=== PATIENT | female | born 1940 | race Caucasian/White ===

== ENCOUNTER 2020-11-18 19:09 | Inpatient (IN) | payer MEDICARE ==
[~2020-11-18] VITALS: Ht 149.9 cm; Wt 72.6 kg
[2020-11-18] MEDS ORDERED: fentaNYL PF VIAL 100 MCG/2 ML VIAL IVP ONE (19:30)
[2020-11-18 19:55] LABS: BASO % 0 % (0-3); EOS % 0 % (0-3); HEMATOCRIT 30.9 % (36.0-47.0); HEMOGLOBIN 10.1 g/dL (12.0-15.5); LYMPH % 8 % (24-48); MEAN CORPUSCULAR HEMOGLOBIN 31 pg (25-35); MEAN CORPUSCULAR HGB CONC 33 g/dL (31-37); MEAN CORPUSCULAR VOLUME 95 fL (79-100); MONO # 0.9 x10^3/uL (0.0-1.1); MONO % 8 % (0-9); NEUT # 9.4 x10^3/uL (1.8-7.7); NEUT % 83 % (31-73); PLATELET COUNT 158 x10^3/uL (140-400); RED BLOOD COUNT 3.24 x10^6/uL (3.50-5.40); RED CELL DISTRIBUTION WIDTH 14.2 % (11.5-14.5); WHITE BLOOD COUNT 11.4 x10^3/uL (4.0-11.0)
[2020-11-18 20:11] LABS: CALCIUM 8.3 mg/dL (8.5-10.1); CREATININE 0.9 mg/dL (0.6-1.0); GFR 59.9; POTASSIUM 4.2 mmol/L (3.5-5.1)
[2020-11-18 20:17] LABS: ALBUMIN 3.2 g/dL (3.4-5.0); TOTAL BILIRUBIN 0.5 mg/dL (0.2-1.0); TOTAL PROTEIN 6.4 g/dL (6.4-8.2)
--- NOTE | 2020-11-18 20:58 | RAD ---
EXAMINATION: XR CHEST 1V CLINICAL HISTORY: Hip fracture EXAM DATE/TIME: 11/18/2020 7:55 PM COMPARISON: None FINDINGS: Lines, Tubes, and Devices: None. Cardiomediastinal Silhouette: Normal heart size. Aortic atherosclerotic calcification. Lungs and Pleura: No evidence of focal airspace consolidation or pleural effusion. Nonspecific mild d iffuse interstitial prominence, possibly chronic. Bones and Soft Tissues: Degenerative changes of the thoracic spine. IMPRESSION: No evidence of acute cardiopulmonary abnormality. Electronically signed by: Johan Dugan DO (11/18/2020 8:56 PM) [facility]
--- NOTE | 2020-11-18 21:03 | PHYS DOC ---
General Adult EDM: Chief Complaint: HIP PAIN HPI: HPI: 80 yo F PMH afib on ASA, HTN with h/o orthostatic hypertension, presents to the ED with her daughter at bedside (rn neonatal at [facility]), (patient consents to his/her/their knowledge and involvement in pts' medical care), with complaints of right hip pain after patient fell while getting out of her chair at home. Patient is not on any anticoagulants. Patient reports not hitting her head or losing consciousness. She called her brother for help. Patients' spironolactone dosage recently increased. Daughter thinks patient may have had a missed MT but has had an unremarkable stress test in the past at [facility]. Patient reports no associated dizziness, chest pain, or dyspnea. Review of Systems: Review of Systems: Constitutional: Denies fever or chills. [] Eyes: Denies change in visual acuity. [] HENT: Denies nasal congestion or sore throat. [] Respiratory: Denies cough or shortness of breath. [] Cardiovascular: Denies chest pain or edema. [] GI: Denies abdominal pain, nausea, vomiting, bloody stools or diarrhea. [] : Denies saddle anesthesia or incontinence Musculoskeletal: Denies midline back pain or flank pain Integument: Denies rash or diaphoresis Neurologic: Denies headache, neck pain, focal weakness or sensory changes. [] Endocrine: Denies polyuria or polydipsia. [] Lymphatic: Denies swollen glands. [] Psychiatric: Denies depression or anxiety. [] Heart Score: C/O Chest Pain: No Risk Factors: Risk Factors: DM, Current or recent (<one month) smoker, HTN, HLP, family history of CAD, obesity. Risk Scores: Score 0 - 3: 2.5% MACE over next 6 weeks - Discharge Home Score 4 - 6: 20.3% MACE over next 6 weeks - Admit for Clinical Observation Score 7 - 10: 72.7% MACE over next 6 weeks - Early Invasive Strategies Current Medications: Current Medications Medications (Trade) Dose Ordered Sig/Franklin Start Time Stop Time Status Last Admin Dose Admin Fentanyl Citrate (Fentanyl 2ml Vial) 50 mcg 1X ONCE 11/18/20 19:30 11/18/20 20:16 DC 11/18/20 20:03 25 MCG Allergies: Allergies: Allergies Coded Allergies Type Severity Reaction Last Updated Verified Sulfa (Sulfonamide Antibiotics) Allergy Unknown "i just know she is allergic" 11/18/20 Yes erythromycin base Allergy Unknown unknown "i just know she is allergic" 11/18/20 Yes silver sulfadiazine Allergy Unknown severe rash 11/18/20 Yes zinc Allergy Unknown severe rash from silvadene 11/18/20 Yes Physical Exam: PE: Constitutional: Well developed, well nourished, no acute distress, non-toxic appearance, hard of hearing HENT: Normocephalic, atraumatic, no signs of head trauma Eyes: PERRLA, EOMI, conjunctiva normal, no discharge. Neck: Normal range of motion, supple, Cardiovascular: S1/2 present, regular rhythm Lungs & Thorax: Speaking in full sentences, bilateral equal chest rise, no tachypnea or increased work of breathing Abdomen: soft, no tenderness, Skin: Warm, dry, no erythema, no rash. [] Back: No midline spinal step-offs or tenderness, no CVA tenderness. [] Extremities: Externally rotated right lower extremity, DP/PT pulses intact on the right, tenderness over right hip, no pain over right knee or ankle Neurologic: Alert and oriented X 3, normal motor function, normal sensory function, no focal deficits noted. [] Psychologic: Affect normal, judgement normal, mood normal. [] Current Patient Data: Labs: Laboratory Tests Test 11/18/20 19:42 White Blood Count 11.4 x10^3/uL (4.0-11.0) H Red Blood Count 3.24 x10^6/uL (3.50-5.40) L Hemoglobin 10.1 g/dL (12.0-15.5) L Hematocrit 30.9 % (36.0-47.0) L Mean Corpuscular Volume 95 fL (79-100) Mean Corpuscular Hemoglobin 31 pg (25-35) Mean Corpuscular Hemoglobin Concent 33 g/dL (31-37) Red Cell Distribution Width 14.2 % (11.5-14.5) Platelet Count 158 x10^3/uL (140-400) Neutrophils (%) (Auto) 83 % (31-73) H Lymphocytes (%) (Auto) 8 % (24-48) L Monocytes (%) (Auto) 8 % (0-9) Eosinophils (%) (Auto) 0 % (0-3) Basophils (%) (Auto) 0 % (0-3) Neutrophils # (Auto) 9.4 x10^3/uL (1.8-7.7) H Lymphocytes # (Auto) 1.0 x10^3/uL (1.0-4.8) Monocytes # (Auto) 0.9 x10^3/uL (0.0-1.1) Eosinophils # (Auto) 0.0 x10^3/uL (0.0-0.7) Basophils # (Auto) 0.0 x10^3/uL (0.0-0.2) Sodium Level 131 mmol/L (136-145) L Potassium Level 4.2 mmol/L (3.5-5.1) Chloride Level 97 mmol/L (98-107) L Carbon Dioxide Level 28 mmol/L (21-32) Anion Gap 6 (6-14) Blood Urea Nitrogen 16 mg/dL (7-20) Creatinine 0.9 mg/dL (0.6-1.0) Estimated GFR (Cockcroft-Gault) 59.9 BUN/Creatinine Ratio 18 (6-20) Glucose Level 124 mg/dL (70-99) H Calcium Level 8.3 mg/dL (8.5-10.1) L Total Bilirubin 0.5 mg/dL (0.2-1.0) Aspartate Amino Transferase (AST) 59 U/L (15-37) H Alanine Aminotransferase (ALT) 97 U/L (14-59) H Alkaline Phosphatase 112 U/L (46-116) Total Protein 6.4 g/dL (6.4-8.2) Albumin 3.2 g/dL (3.4-5.0) L Albumin/Globulin Ratio 1.0 (1.0-1.7) Laboratory Tests 11/18/20 19:42 Laboratory Tests 11/18/20 19:42 Vital Signs: Vital Signs Date Time Temp Pulse Resp B/P (MAP) Pulse Ox O2 Delivery O2 Flow Rate FiO2 11/18/20 20:03 98 Room Air EKG: EKG: A. fib at 89 bpm, left axis deviation, normal intervals, no T wave inversion, no ST ovation ST depression Radiology/Procedures: Radiology/Procedures: IMAGING REPORT Signed PATIENT: JAXTANG ACCOUNT: [id number] : 1940 LOCATION: ER AGE: 80 SEX: F EXAM STATUS: REG ER ORD. PHYSICIAN: MIKE CADET DO REASON: FALL FROM STANDING, UNSURE IF HIT HEAD PROCEDURE: CT HEAD AND CERVICAL SPINE WO Exam: CT head and cervical spine INDICATION: Fall from standing, ensure that head TECHNIQUE: Sequential axial images through the head and cervical spine were obtained without the administration of IV contrast. Exposure: One or more of the following in the visualized dose reduction techniques were utilized for this examination: 1. Automated exposure control 2. Adjustment of the MA and/or KV according to patient size 3. Use of iterative of reconstructive technique Comparisons: None FINDINGS: Head: No focal parenchymal lesion or hemorrhage is identified. There is no midline shift or sulcal effacement. Patchy evidence in the periventricular white matter. No acute vascular territory infarction is identified. Abraham-white distinction is preserved. The ventricular system is within normal limits without compression hydrocephalus. The basal cisterns are well maintained. The visualized portions of the paranasal sinuses and mastoid air cells are well- pneumatized. No acute fractures. Cervical spine: There is mild reversal of normal cervical lordosis. Vertebral body heights are well-maintained. Fracture to the cervical spine is not identified. Multilevel spondylotic change in the cervical spine with degenerative disc disease greatest at C4-C5, C5-C6 and C6-C7. Mild bilateral facet arthropathy is noted in the cervical spine. Visualized paraspinal soft tissues are unremarkable. IMPRESSION: 1. No acute intracranial abnormality. 2. Negative CT C-spine for acute traumatic injury. Electronically signed by: Levar Lincoln MD (11/18/2020 9:05 PM) [facility] DICTATED and SIGNED BY: LEVAR LINCOLN MD DATE: 11/18/20 [id number] IMAGING REPORT Signed PATIENT: TANG CAMARA ACCOUNT: [id number] : 1940 LOCATION: ER AGE: 80 SEX: F EXAM STATUS: REG ER ORD. PHYSICIAN: IRVIN GONSALEZ DESPATCHING AND RECEIVING CLERK REASON: hip fx PROCEDURE: CHEST AP ONLY EXAMINATION: XR CHEST 1V CLINICAL HISTORY: Hip fracture EXAM DATE/TIME: 11/18/2020 7:55 PM COMPARISON: None FINDINGS: Lines, Tubes, and Devices: None. Cardiomediastinal Silhouette: Normal heart size. Aortic atherosclerotic calcification. Lungs and Pleura: No evidence of focal airspace consolidation or pleural effusion. Nonspecific mild diffuse interstitial prominence, possibly chronic. Bones and Soft Tissues: Degenerative changes of the thoracic spine. IMPRESSION: No evidence of acute cardiopulmonary abnormality. Electronically signed by: Johan Dozier DO (11/18/2020 8:56 PM) [facility] DICTATED and SIGNED BY: JOHAN DOZIER DO DATE: 11/18/[id number] 0 IMAGING REPORT Signed PATIENT: TANG CAMARA ACCOUNT: [id number] : 1940 LOCATION: ER AGE: 80 SEX: F EXAM STATUS: REG ER ORD. PHYSICIAN: MIKE CADET DO REASON: RT HIP INJURY, FALL PROCEDURE: HIP RIGHT 2V WITH PELVIS Exam: Right hip INDICATION: Right hip injury, fall TECHNIQUE: Frontal view of the pelvis with frontal and frog-leg lateral views the right hip Comparisons: None FINDINGS: Obliquely oriented comminuted intertrochanteric right hip fracture which is foreshortened. Diffuse osteopenia. Soft tissues are unremarkable. Joint spaces are well-maintained. IMPRESSION: Comminuted intertrochanteric right hip fracture, foreshortened and moderately displaced. Electronically signed by: Levar Lincoln MD (11/18/2020 9:31 PM) [facility] DICTATED and SIGNED BY: LEVAR LINCOLN MD DATE: 11/18/[id number] 0 Course & Med Decision Making: Course & Med Decision Making Pertinent Labs and Imaging studies reviewed. (See chart for details) Concern for closed comminuted right intertrochanteric hip fracture after fall from standing in an elderly patient. I spoke to orthopedic surgery Dr. Rosas regarding this patient. Will admit for further medical management. Patient stable at time of admission and agrees with this plan. I have spoken with the patient and/or caregivers. I have explained the patient's condition, diagnosis and treatment plan based on the information available to me at this time. I have answered the patient's and/or caregivers questions and answered any concerns. The patient and/or caregivers have as good an understanding of the patient's diagnosis, condition and treatment plan as can be expected at this point. The patient has been stabilized within the capability of the emergency department. The patient will be transported for further care and management or will be moved to an observation or inpatient service. I have communicated with the staff or medical practitioner taking over this patient's care. Dragon Disclaimer: Demarco Disclaimer: This electronic medical record was generated, in whole or in part, using a voice recognition dictation system. Departure Departure Impression: Primary Impression: Closed intertrochanteric fracture of right hip Additional Impression: Fall Disposition: ADMITTED INPATIENT Admitting Physician: LAURYN (Dr. Zhou) Condition: STABLE Referrals: LUIS E ORANTES (PCP) MIKE CADET DO Nov 18, 2020 21:03
--- NOTE | 2020-11-18 21:07 | RAD ---
Exam: CT head and cervical spine INDICATION: Fall from standing, ensure that head TECHNIQUE: Sequential axial images through the head and cervical spine were obtained without the admi nistration of IV contrast. Exposure: One or more of the following in the visualized dose reduction techniques were utilized for this examination: 1. Automated exposure control 2. Adjustment of the MA and/or KV according to patient size 3. Use of iterative of reconstructive technique Comparisons: None FINDINGS: Head: No focal parenchymal lesion or hemorrhage is identified. There is no midline shift or sulcal effaceme nt. Patchy evidence in the periventricular white matter. No acute vascular territory infarction is identi fied. Abraham-white distinction is preserved. The ventricular system is within normal limits without compression hydrocephalus. The basal cisterns are well maintained. The visualized portions of the paranasal sinuses and mastoid air cells are well-pneumatized. No acute fractures. Cervical spine: There is mild reversal of normal cervical lordosis. Vertebral body heights are well-maintained. Fracture to the cervical spine is not identified. Multilevel spondylotic change in the cervical spine with degenerative disc disease greatest at C4-C5, C5-C6 and C6-C7. Mild bilateral facet arthropathy is noted in the cervical spine. Visualized paraspinal soft tissues are unremarkable. IMPRESSION: 1. No acute intracranial abnormality. 2. Negative CT C-spine for acute traumatic injury. Electronically signed by: Levar Stoddard MD (11/18/2020 9:05 PM) [facility]
--- NOTE | 2020-11-18 21:33 | RAD ---
Exam: Right hip INDICATION: Right hip injury, fall TECHNIQUE: Frontal view of the pelvis with frontal and frog-leg lateral views the right hip Comparisons: None FINDINGS: Obliquely oriented comminuted intertrochanteric right hip fracture which is foreshortened. Diffuse os teopenia. Soft tissues are unremarkable. Joint spaces are well-maintained. IMPRESSION: Comminuted intertrochanteric right hip fracture, foreshortened and moderately displaced. Electronically signed by: Levar Stoddard MD (11/18/2020 9:31 PM) [facility]STI
[2020-11-18] MEDS ORDERED: ONDANSETRON PF 4 MG/2 ML VIAL. IVP ONE (23:00)
[2020-11-18] MEDS ORDERED: MORPHINE SULFATE 4 MG/ML INJ. IVP ONE (23:00)
[2020-11-18 23:57] VITALS: BP 142/61
[2020-11-19] VITALS (14 sets, daily range): BP systolic 70–146; BP diastolic 43–74
[2020-11-19] MEDS ORDERED: FERR-36 PO (01:08)
[2020-11-19] MEDS ORDERED: METO-313 PO (01:08)
[2020-11-19] MEDS ORDERED: TRIA15CR2 TP (01:08)
[2020-11-19] MEDS ORDERED: CETI10TA74 PO (01:08)
[2020-11-19] MEDS ORDERED: OMEP20TA63 PO (01:08)
[2020-11-19] MEDS ORDERED: GABA-585 PO (01:08)
[2020-11-19] MEDS ORDERED: ASPI81TA59 PO (01:08)
[2020-11-19] MEDS ORDERED: SPIR25TA5 PO (01:08)
[2020-11-19] MEDS ORDERED: MV-M1TAB7 PO (01:08)
[2020-11-19] MEDS ORDERED: SIMV20TA18 PO (01:08)
[2020-11-19] MEDS ORDERED: METOPROLOL TART IMMED RELEASE 50 MG TABLET. PO ONE (01:30)
[2020-11-19] MEDS ORDERED: ONDANSETRON PF 4 MG/2 ML VIAL. IVP PRN ×2 (01:30→08:00)
[2020-11-19] MEDS: fentaNYL PF VIAL 100 MCG/2 ML VIAL IVP PRN ×4 (02:01→18:11)
[2020-11-19] MEDS: FERROUS SULFATE 325 MG TABLET. PO SCH (07:41)
[2020-11-19] MEDS: ASPIRIN CHEWABLE 81 MG TABLET. PO SCH (07:41)
[2020-11-19] MEDS ORDERED: ELECTROLYTE (NON-ICU) PROTOCOL. MC PRN (08:00)
[2020-11-19] MEDS ORDERED: ZOLPIDEM 5 MG TABLET. PO PRN (08:00)
[2020-11-19] MEDS ORDERED: CALCIUM CARBONATE 500 MG TAB.CHEW PO PRN (08:00)
[2020-11-19] MEDS ORDERED: MORPHINE SULFATE 2 MG/ML INJ. IV PRN ×2 (08:00)
[2020-11-19] MEDS ORDERED: MAGNESIUM HYDROXIDE 2,400 MG/30 ML ORAL.SUSP. PO PRN (08:00)
[2020-11-19] MEDS: SENNOSIDES/DOCUSATE 8.6/50MG TABLET. PO SCH (09:00)
[2020-11-19] MEDS: METOPROLOL TART IMMED RELEASE 50 MG TABLET. PO SCH ×2 (09:00→18:38)
--- NOTE | 2020-11-19 09:20 | EKG ---
[facility] [address] [place] [address] Test Date: 2020-11-19 Test Time: 09:16:40 Pat Name: TANG CAMARA Department: Room: 528 1 Gender: F [employer]adoop Admin: HUNTER : 1940 Requested By: ANISH DUARTE Order Number: [id number] Reading MD: Measurements Intervals [place] Rate: 90 P: ME: QRS: -21 QRSD: 80 T: 64 QT: 386 QTc: 477 Interpretive Statements IRREGULAR RHYTHM, NO P-WAVE FOUND LEFTWARD AXIS QRS(T) CONTOUR ABNORMALITY CONSIDER ANTEROLATERAL MYOCARDIAL DAMAGE ST & T ABNORMALITY, CONSIDER INFERIOR ISCHEMIA OR LEFT VENTRICULAR STRAIN ABNORMAL ECG RI6.02 No previous ECG available for comparison
[2020-11-19] MEDS: SPIRONOLACTONE 25 MG TABLET PO SCH (09:21)
[2020-11-19] MEDS: CETIRIZINE HCL 10 MG TABLET. PO SCH (09:21)
[2020-11-19] MEDS: PANTOPRAZOLE 40 MG TABLET.DR. PO SCH (09:21)
[2020-11-19] MEDS: CHOLECALCIFEROL (VITAMIN D3) 1,000 UNIT TABLET PO SCH (09:21)
[2020-11-19] MEDS: MULTIVITAMIN with MINERAL TABLET. PO SCH (09:21)
[2020-11-19] MEDS: ACETAMINOPHEN 325 MG TABLET. PO PRN ×2 (09:53→15:23)
--- NOTE | 2020-11-19 10:42 | PDOC1 ---
History and Physical Date of Service: DOS: DATE: 11/19/20 TIME: 10:29 Chief Complaint: Problems: (1) Closed intertrochanteric fracture of right hip Chief Complain: Hip pain History of Present Illness: HPI: Patient is an 80-year-old female who presented overnight due to hip pain after a fall at home. Patient reports that she was getting up from her chair and felt like her head was spinning. At that point she said "things went black and next thing I knew I was waking up on the floor." She does not believe she hit her head but was having notable hip pain. Brought to the emergency room here found to have right hip fracture. Patient admitted for medical management and surgical evaluation. Patient does have a history of A. fib and requesting cardiac clearance prior to any sort of surgical intervention. Evaluated bedside patient only complaint was the right hip pain. She did report she felt like she was having some bladder pressure but needed to urinate. We will keep n.p.o. and hold anticoagulants until surgical plan. Patient made need dose of heparin or Lovenox from the surgical intervention today. Past Medical/Surgical History: PMH/PSH: A. fib, hypertension, lower extremity neuropathy Allergies: Allergies: Coded Allergies: silver sulfadiazine (Verified Allergy, Severe, severe rash, 11/19/20) zinc (Verified Allergy, Severe, severe rash from silvadene, 11/19/20) Sulfa (Sulfonamide Antibiotics) (Verified Allergy, Intermediate, "i just know she is allergic", 11/19/20) erythromycin base (Verified Allergy, Intermediate, unknown "i just know she is allergic", 11/19/20) lisinopril (Verified Allergy, Intermediate, Rash, 11/19/20) Family History: Family History: Noncontributory Social History: Social History: Denies alcohol tobacco drug use Current Medications: Current Medications Current Medications Fentanyl Citrate (Fentanyl 2ml Vial) 50 mcg 1X ONCE IVP Last administered on 11/18/20at 20:03; Start 11/18/20 at 19:30; Stop 11/18/20 at 20:16; Status DC Morphine Sulfate (Morphine Sulfate) 4 mg 1X ONCE IVP ; Start 11/18/20 at 23:00; Stop 11/18/20 at 23:01; Status DC Ondansetron HCl (Zofran) 4 mg 1X ONCE IVP Last administered on 11/18/20at 23:03; Start 11/18/20 at 23:00; Stop 11/18/20 at 23:01; Status DC Metoprolol Tartrate (Lopressor) 100 mg 1X ONCE PO Last administered on 11/19/20at 02:00; Start 11/19/20 at 01:30; Stop 11/19/20 at 01:31; Status DC Fentanyl Citrate (Fentanyl 2ml Vial) 25 mcg PRN Q2HR PRN IVP SEVERE PAIN 7-10 Last administered on 11/19/20at 07:02; Start 11/19/20 at 01:15 Ondansetron HCl (Zofran) 4 mg PRN Q6HRS PRN IVP NAUSEA/VOMITING 1ST CHOICE; Start 11/19/20 at 01:30 Aspirin (Aspirin Chewable) 81 mg DAILY PO ; Start 11/19/20 at 09:00 Cetirizine HCl (ZyrTEC) 10 mg DAILY PO Last administered on 11/19/20at 09:21; Start 11/19/20 at 09:00 Ferrous Sulfate (Feosol) 325 mg DAILY PO ; Start 11/19/20 at 09:00 Gabapentin (Neurontin) 100 mg DAILYWSUP PO ; Start 11/19/20 at 17:00 Simvastatin (Zocor) 20 mg QHS PO ; Start 11/19/20 at 21:00 Spironolactone (Aldactone) 25 mg DAILY PO Last administered on 11/19/20at 09:21; Start 11/19/20 at 09:00 Metoprolol Tartrate (Lopressor) 100 mg BID PO ; Start 11/19/20 at 09:00 Vitamin D (Vitamin D3) 2,000 unit DAILY PO Last administered on 11/19/20at 09:21; Start 11/19/20 at 09:00 Pantoprazole Sodium (Protonix) 40 mg DAILYAC PO Last administered on 11/19/20at 09:21; Start 11/19/20 at 07:30 Multivitamins (Thera M Plus) 1 tab DAILY PO Last administered on 11/19/20at 09:21; Start 11/19/20 at 09:00 Ondansetron HCl (Zofran) 4 mg PRN Q6HRS PRN IVP NAUSEA/VOMITING; Start 11/19/20 at 08:00 Calcium Carbonate/ Glycine (Tums) 500 mg PRN Q3HRS PRN PO UPSET STOMACH; Start 11/19/20 at 08:00 Zolpidem Tartrate (Ambien) 5 mg PRN QHS PRN PO INSOMNIA, MAY REPEAT IN 1HR; Start 11/19/20 at 08:00 Info (Non-Icu Electrolyte Protocol) 1 ea PRN DAILY PRN MC SEE COMMENTS; Start 11/19/20 at 08:00 Morphine Sulfate (Morphine Sulfate) 1 mg PRN Q1HR PRN IV PAIN-SEE COMMENTS; Start 11/19/20 at 08:00 Morphine Sulfate (Morphine Sulfate) 2 mg PRN Q1HR PRN IV PAIN; Start 11/19/20 at 08:00 Acetaminophen (Tylenol) 650 mg PRN Q6HRS PRN PO Headaches, Temp > 101.5F Last administered on 11/19/20at 09:53; Start 11/19/20 at 08:00 Senna/Docusate Sodium (Senna Plus) 1 tab BID PO ; Start 11/19/20 at 09:00 Magnesium Hydroxide (Milk Of Magnesia) 2,400 mg PRN Q12HR PRN PO CONSTIPATION; Start 11/19/20 at 08:00 Active Scripts Active Reported Triamcinolone Acetonide 0.025% Cream (Triamcinolone Acetonide) 15 Gm Cream..g. 1 Em TP BID PRN Children's Aspirin (Aspirin) 81 Mg Tab.chew 1 Tab PO DAILY 30 Days Iron (Ferrous Sulfate) 325 Mg Tablet 1 Tab PO DAILY 30 Days Prilosec Otc (Omeprazole Magnesium) 20 Mg Tablet.dr 1 Tab PO DAILY 30 Days Vitamin D3 Complete Caplet (Mv-Mn/Iron/Fa/Herbal Cmplx#190) 1 Each Tablet 2,000 Units PO DAILY Neurontin (Gabapentin) 100 Mg Capsule 100 Mg PO DAILYWSUP Simvastatin 20 Mg Tablet 1 Tab PO QHS Spironolactone 25 Mg Tablet 1 Tab PO DAILY Lopressor (Metoprolol Tartrate) 100 Mg Tablet 1 Tab PO BID 30 Days Zyrtec (Cetirizine Hcl) 10 Mg Tablet 1 Tab PO DAILY ROS: Review of Systems Review of System Negative unless noted in HPI Physical Exam: Vital Signs: Vital Signs Date Time Temp Pulse Resp B/P (MAP) Pulse Ox O2 Delivery O2 Flow Rate FiO2 11/19/20 09:00 73 98/43 11/19/20 07:15 98.4 18 95 Room Air 98.4 Physcial Exam: GEN: No apparent distress. Alert and oriented HEENT: Normal cephalic, atraumatic, external auditory canals are patent EYES: Extraocular muscles are intact, pupil are equally round and reactive to light and accommodation MUSCULOSKELETAL: Well developed , well nourished, range of motion limited by pain ENDOCRINE: No thyromegaly was palpated LYMPHATICS: No cervical chain or axillary nodes were noted HEMATOPOIETIC: No bruising NECK: Supple, no JVD, no thyromegaly was noted LUNGS: Clear to auscultation in all lung wallis without rhonchi or wheezing HEART: RRR, S1, S2 present. Peripheral pulses intact, no obvious murmurs noted ABDOMEN: Soft, nontender. Positive bowel sounds, no organomegaly, normal bowel sounds EXTREMITIES: Effusion with bruising present on the right knee. NEUROLOGIC: Normal speech and tone. A&O x 3, moves all extremities, no obvious focal deficits PSYCHIATRIC: Normal affect, normal mood. Stable SKIN: No ulcerations or rashes, good skin turgor, no jaundice VASCULAR: Good capillary refill, neurovascular bundle appears to be intact Labs: Labs: Laboratory Tests Test 11/18/20 19:42 11/18/20 23:08 White Blood Count 11.4 x10^3/uL (4.0-11.0) Red Blood Count 3.24 x10^6/uL (3.50-5.40) Hemoglobin 10.1 g/dL (12.0-15.5) Hematocrit 30.9 % (36.0-47.0) Mean Corpuscular Volume 95 fL (79-100) Mean Corpuscular Hemoglobin 31 pg (25-35) Mean Corpuscular Hemoglobin Concent 33 g/dL (31-37) Red Cell Distribution Width 14.2 % (11.5-14.5) Platelet Count 158 x10^3/uL (140-400) Neutrophils (%) (Auto) 83 % (31-73) Lymphocytes (%) (Auto) 8 % (24-48) Monocytes (%) (Auto) 8 % (0-9) Eosinophils (%) (Auto) 0 % (0-3) Basophils (%) (Auto) 0 % (0-3) Neutrophils # (Auto) 9.4 x10^3/uL (1.8-7.7) Lymphocytes # (Auto) 1.0 x10^3/uL (1.0-4.8) Monocytes # (Auto) 0.9 x10^3/uL (0.0-1.1) Eosinophils # (Auto) 0.0 x10^3/uL (0.0-0.7) Basophils # (Auto) 0.0 x10^3/uL (0.0-0.2) Sodium Level 131 mmol/L (136-145) Potassium Level 4.2 mmol/L (3.5-5.1) Chloride Level 97 mmol/L (98-107) Carbon Dioxide Level 28 mmol/L (21-32) Anion Gap 6 (6-14) Blood Urea Nitrogen 16 mg/dL (7-20) Creatinine 0.9 mg/dL (0.6-1.0) Estimated GFR (Cockcroft-Gault) 59.9 BUN/Creatinine Ratio 18 (6-20) Glucose Level 124 mg/dL (70-99) Calcium Level 8.3 mg/dL (8.5-10.1) Total Bilirubin 0.5 mg/dL (0.2-1.0) Aspartate Amino Transf (AST/SGOT) 59 U/L (15-37) Alanine Aminotransferase (ALT/SGPT) 97 U/L (14-59) Alkaline Phosphatase 112 U/L (46-116) Total Protein 6.4 g/dL (6.4-8.2) Albumin 3.2 g/dL (3.4-5.0) Albumin/Globulin Ratio 1.0 (1.0-1.7) SARS-CoV-2 RNA (JUDY) Negative (Negative) SARS-CoV-2 Antigen (Rapid) Negative (NEGATIVE) Laboratory Tests Test 11/18/20 19:42 11/18/20 23:08 White Blood Count 11.4 x10^3/uL (4.0-11.0) Red Blood Count 3.24 x10^6/uL (3.50-5.40) Hemoglobin 10.1 g/dL (12.0-15.5) Hematocrit 30.9 % (36.0-47.0) Mean Corpuscular Volume 95 fL (79-100) Mean Corpuscular Hemoglobin 31 pg (25-35) Mean Corpuscular Hemoglobin Concent 33 g/dL (31-37) Red Cell Distribution Width 14.2 % (11.5-14.5) Platelet Count 158 x10^3/uL (140-400) Neutrophils (%) (Auto) 83 % (31-73) Lymphocytes (%) (Auto) 8 % (24-48) Monocytes (%) (Auto) 8 % (0-9) Eosinophils (%) (Auto) 0 % (0-3) Basophils (%) (Auto) 0 % (0-3) Neutrophils # (Auto) 9.4 x10^3/uL (1.8-7.7) Lymphocytes # (Auto) 1.0 x10^3/uL (1.0-4.8) Monocytes # (Auto) 0.9 x10^3/uL (0.0-1.1) Eosinophils # (Auto) 0.0 x10^3/uL (0.0-0.7) Basophils # (Auto) 0.0 x10^3/uL (0.0-0.2) Sodium Level 131 mmol/L (136-145) Potassium Level 4.2 mmol/L (3.5-5.1) Chloride Level 97 mmol/L (98-107) Carbon Dioxide Level 28 mmol/L (21-32) Anion Gap 6 (6-14) Blood Urea Nitrogen 16 mg/dL (7-20) Creatinine 0.9 mg/dL (0.6-1.0) Estimated GFR (Cockcroft-Gault) 59.9 BUN/Creatinine Ratio 18 (6-20) Glucose Level 124 mg/dL (70-99) Calcium Level 8.3 mg/dL (8.5-10.1) Total Bilirubin 0.5 mg/dL (0.2-1.0) Aspartate Amino Transf (AST/SGOT) 59 U/L (15-37) Alanine Aminotransferase (ALT/SGPT) 97 U/L (14-59) Alkaline Phosphatase 112 U/L (46-116) Total Protein 6.4 g/dL (6.4-8.2) Albumin 3.2 g/dL (3.4-5.0) Albumin/Globulin Ratio 1.0 (1.0-1.7) SARS-CoV-2 RNA (JUDY) Negative (Negative) SARS-CoV-2 Antigen (Rapid) Negative (NEGATIVE) Assessment/Plan Assessment/Plan Patient is an 80-year-old female presented overnight due to hip pain after a fall at home. Intertrochanteric right hip fracture, hypertension, neuropathy, atrial fibrillation not on home anticoagulation -Admit to hospitalist -Ortho and cardiology consulted in emergency room -Cardiac clearance prior to this any surgical intervention -Awaiting surgical plan if any -Keep n.p.o. -Hold anticoagulants for now -Home meds resumed as indicated -Family at bedside and updated on plan Justifications for Admission Other Justification KAJAL DE LA O MD Nov 19, 2020 10:42
--- NOTE | 2020-11-19 11:04 | NUR ---
SW following. Discussed with RN, pt from home alone, room air, NPO. Ortho following. Pt needs cardiology clearance for surgery. Rapid COVID-19 negative. PT/OT ordered. Pt having an EKG today. SW will continue to follow.
[2020-11-19] MEDS: IV NORMAL SALINE 1000ML BAG 1,000 ML IV SCH ×3 (11:15→23:41)
--- NOTE | 2020-11-19 11:38 | PDOC2 ---
ANISH DUARTE PSYCHOLOGIST MILITARY PERSONNEL 11/19/20 1138: CARDIAC CONSULT DATE OF CONSULT Date of Consult DATE: 11/19/20 TIME: 11:15 REASON FOR CONSULT Reason for Consult: Preop clearance, AFIB REFERRING PHYSICIAN Referring Physician: Abelardo SOURCE Source: Caregiver (granddaughter), Chart review, Patient HISTORY OF PRESENT ILLNESS HISTORY OF PRESENT ILLNESS This is a pleasant 80 yo female admitted for complains of fall. Reports that she go up the rocking chair and felt like the room was spinning and was about to black out and her foot got trapped on the rocking chair and fell. No lost of consciousness. Denies any palpitations, chest or SOA at that time. Denies any nausea or vomiting. She has chronic AFIB and treated with metoprolol and on ASA and no anticoagulation because she has fallen 6 times in the last yr. She sees a femal school librarian at [facility]. No known CAD, VTE and last stress test is uncertain approximately within the last 3 yrs. She has right hip comminuted fracture with obvious RLE short deviation compared to left. Her AFIB is rate controlled. However in the last few weeks she has been having RIVERA and has to stop at times to catch her breath. Denies any chest pain or palpitations at that time but does have hx of chronic bronchitis and nonsmoker. PAST MEDICAL HISTORY Cardiovascular: AFIB, HTN, Hyperlipidemia Pulmonary: Bronchitis (chronic) CENTRAL NERVOUS SYSTEM: Other (No pertinent history) GI: No pertinent hx Heme/Onc: Anemia NOS Hepatobiliary: No pertinent hx Psych: No pertinent hx Musculoskeletal: Osteoarthritis Rheumatologic: No pertinent hx Infectious disease: No pertinent hx ENT: No pertinent hx Renal/: No pertinent hx Endocrine: Osteoporosis Dermatology: No pertinent hx PAST SURGICAL HISTORY Past Surgical History: Other (left hand surgery, bilateral ganglion cyst removal on hands) FAMILY HISTORY Family History: Heart Disease, Stroke SOCIAL HISTORY Smoke: No ALCOHOL: none Drugs: None Lives: Alone CURRENT MEDICATIONS CURRENT MEDICATIONS Current Medications Medications (Trade) Dose Ordered Sig/Franklin Route PRN Reason Start Time Stop Time Status Last Admin Dose Admin Fentanyl Citrate (Fentanyl 2ml Vial) 50 mcg 1X ONCE IVP 11/18/20 19:30 11/18/20 20:16 DC 11/18/20 20:03 Ondansetron HCl (Zofran) 4 mg 1X ONCE IVP 11/18/20 23:00 11/18/20 23:01 DC 11/18/20 23:03 Metoprolol Tartrate (Lopressor) 100 mg 1X ONCE PO 11/19/20 01:30 11/19/20 01:31 DC 11/19/20 02:00 Fentanyl Citrate (Fentanyl 2ml Vial) 25 mcg PRN Q2HR PRN IVP pain 11/19/20 01:15 11/19/20 07:02 Cetirizine HCl (ZyrTEC) 10 mg DAILY PO 11/19/20 09:00 11/19/20 09:21 Spironolactone (Aldactone) 25 mg DAILY PO 11/19/20 09:00 11/19/20 09:21 Vitamin D (Vitamin D3) 2,000 unit DAILY PO 11/19/20 09:00 11/19/20 09:21 Pantoprazole Sodium (Protonix) 40 mg DAILYAC PO 11/19/20 07:30 11/19/20 09:21 Multivitamins (Thera M Plus) 1 tab DAILY PO 11/19/20 09:00 11/19/20 09:21 Acetaminophen (Tylenol) 650 mg PRN Q6HRS PRN PO Headaches, Temp > 101.5F 11/19/20 08:00 11/19/20 09:53 ALLERGIES ALLERGIES: Coded Allergies: silver sulfadiazine (Verified Allergy, Severe, severe rash, 11/19/20) zinc (Verified Allergy, Severe, severe rash from silvadene, 11/19/20) Sulfa (Sulfonamide Antibiotics) (Verified Allergy, Intermediate, "i just know she is allergic", 11/19/20) erythromycin base (Verified Allergy, Intermediate, unknown "i just know she is allergic", 11/19/20) lisinopril (Verified Allergy, Intermediate, Rash, 11/19/20) ROS Review of System 14 point ROS evaluated with pertinent positives noted per HPI PHYSICAL EXAM General: Alert, Oriented X3, Cooperative, No acute distress HEENT: Atraumatic, Mucous membr. moist/pink Lungs: Clear to auscultation, Normal air movement Heart: No murmurs, Other (AFIB) Abdomen: Soft, No tenderness Extremities: No cyanosis, No edema Skin: No breakdown, No significant lesion Neuro: Normal speech, Sensation intact Psych/Mental Status: Mental status NL, Mood NL MUSCULOSKELETAL: Osteoarthritic changes both hands, Other (right hip fracture) VITALS/I&O VITALS/I&O: Vital Signs Date Time Temp Pulse Resp B/P (MAP) Pulse Ox O2 Delivery O2 Flow Rate FiO2 11/19/20 10:51 98.4 70 20 108/54 (72) 96 Room Air 98.4 I & O 11/18/20 11/18/20 11/19/20 15:00 23:00 07:00 Intake Total 0 ml Balance 0 ml LABS Lab: Laboratory Tests Test 11/18/20 19:42 11/18/20 23:08 White Blood Count 11.4 x10^3/uL (4.0-11.0) H Red Blood Count 3.24 x10^6/uL (3.50-5.40) L Hemoglobin 10.1 g/dL (12.0-15.5) L Hematocrit 30.9 % (36.0-47.0) L Mean Corpuscular Volume 95 fL (79-100) Mean Corpuscular Hemoglobin 31 pg (25-35) Mean Corpuscular Hemoglobin Concent 33 g/dL (31-37) Red Cell Distribution Width 14.2 % (11.5-14.5) Platelet Count 158 x10^3/uL (140-400) Neutrophils (%) (Auto) 83 % (31-73) H Lymphocytes (%) (Auto) 8 % (24-48) L Monocytes (%) (Auto) 8 % (0-9) Eosinophils (%) (Auto) 0 % (0-3) Basophils (%) (Auto) 0 % (0-3) Neutrophils # (Auto) 9.4 x10^3/uL (1.8-7.7) H Lymphocytes # (Auto) 1.0 x10^3/uL (1.0-4.8) Monocytes # (Auto) 0.9 x10^3/uL (0.0-1.1) Eosinophils # (Auto) 0.0 x10^3/uL (0.0-0.7) Basophils # (Auto) 0.0 x10^3/uL (0.0-0.2) Sodium Level 131 mmol/L (136-145) L Potassium Level 4.2 mmol/L (3.5-5.1) Chloride Level 97 mmol/L (98-107) L Carbon Dioxide Level 28 mmol/L (21-32) Anion Gap 6 (6-14) Blood Urea Nitrogen 16 mg/dL (7-20) Creatinine 0.9 mg/dL (0.6-1.0) Estimated GFR (Cockcroft-Gault) 59.9 BUN/Creatinine Ratio 18 (6-20) Glucose Level 124 mg/dL (70-99) H Calcium Level 8.3 mg/dL (8.5-10.1) L Total Bilirubin 0.5 mg/dL (0.2-1.0) Aspartate Amino Transferase (AST) 59 U/L (15-37) H Alanine Aminotransferase (ALT) 97 U/L (14-59) H Alkaline Phosphatase 112 U/L (46-116) Total Protein 6.4 g/dL (6.4-8.2) Albumin 3.2 g/dL (3.4-5.0) L Albumin/Globulin Ratio 1.0 (1.0-1.7) SARS-CoV-2 RNA (JUDY) Negative (Negative) SARS-CoV-2 Antigen (Rapid) Negative (NEGATIVE) Laboratory Tests 11/18/20 19:42 Laboratory Tests 11/18/20 19:42 ASSESSMENT/PLAN ASSESSMENT/PLAN 1. Traumatic mechanical fall with right hip fracture. related to vertigo 2. Osteoporosis: on biphosphonates 3. HTN: controlled 4. HLP on home statin 5. Chronic AFIB: rate controlled 6. RIVERA with hx of chronic bronchitis: has been happening intermittently 7. Anemia Recommendations 1. Continue metoprolol preop. Would need anticoagulation post surgery. 2. Awaiting ortho will need hip repair. TTE revealed normal EF and LV WM. She is low to moderate risk for perioperative CV events 3. Start IS 4. Will follow post op KVNG MELLO MD 11/19/20 1609: CARDIAC CONSULT ASSESSMENT/PLAN ASSESSMENT/PLAN The patient was seen and interviewed as well as examined at the bedside. The chart was reviewed. The case was discussed. Agree with the plan of care. ANISH DUARTE APRN Nov 19, 2020 11:38 KVNG MELLO MD Nov 19, 2020 16:09
--- NOTE | 2020-11-19 12:56 | CARD ---
MR#: [id number] Date of Study: 11/19/2020 Ordering Physician: ANISH DUARTE, Referring Physician: ANISH DUARTE, Tech: Leida Tuan, [facility] APPROVED REPORT EXAM: Two-dimensional and M-mode echocardiogram with Doppler and color Doppler. Other Information Quality : AverageHR: 98bpm INDICATION Atrial Fibrillation Pre-Op RISK FACTORS Hypertension Hyperlipidemia Diabetes Smoking 2D DIMENSIONS Left Atrium(2D)3.2 (1.6-4.0cm)IVSd1.0 (0.7-1.1cm) Aortic Root(2D)2.9 (2.0-3.7cm)LVDd4.9 (3.9-5.9cm) LVOT Diameter2.0 (1.8-2.4cm)PWd0.9 (0.7-1.1cm) LVDs1.6 (2.5-4.0cm)FS (%) 68.6 % SV91.7 ml Aortic Valve AoV Peak Tien.116.5cm/sAoV VTI25.6cm AO Peak GR.5.4mmHgLVOT VTI 13.08cm AO Mean GR.4mmHg Mitral Valve MV E Hcjgwrsd19.4cm/sMV DECEL [id number] TDI Lateral E' P. V11.71cm/sMedial E' P. V7.14cm/s E/Lateral E'7.6E/Medial E'12.5 Tricuspid Valve TR P. Kalrnldc768dr/sRAP [id number] TR Peak Gr.39jiEfFPCX11hiRv LEFT VENTRICLE The left ventricle is normal size. There is normal left ventricular wall thickness. The left ventricu lar systolic function is normal and the ejection fraction is within normal range. The Ejection Fracti on is 50-55%. There is normal LV segmental wall motion. Diastology indeterminate due to atrial fibril lation. RIGHT VENTRICLE The right ventricle is normal size. There is normal right ventricular wall thickness. The right ventr icular systolic function is normal. ATRIA The left atrium size is normal. The right atrium size is normal. The interatrial septum is intact wit h no evidence for an atrial septal defect or patent foramen ovale as noted on 2-D or Doppler imaging. AORTIC VALVE The aortic valve is normal in structure and function. Doppler and Color Flow revealed trace aortic re gurgitation. There is no significant aortic valvular stenosis. Calculated aortic valve area is 1.66 c m2 with maximum pressure gradient of 7 mmHg and mean pressure gradient of 4 mmHg. MITRAL VALVE The mitral valve is normal in structure and function. There is no evidence of mitral valve prolapse. There is no mitral valve stenosis. Doppler and Color-flow revealed trace mitral regurgitation. TRICUSPID VALVE The tricuspid valve is normal in structure and function. Doppler and Color Flow revealed trace to mil d tricuspid regurgitation with an estimated PAP of 38 mmHg. There is no tricuspid valve stenosis. PULMONIC VALVE The pulmonary valve is normal in structure and function. Doppler and Color Flow revealed trace to mil d pulmonic valvular regurgitation. GREAT VESSELS The aortic root is normal in size. The IVC is normal in size and collapses >50% with inspiration. PERICARDIAL EFFUSION There is no evidence of significant pericardial effusion. Critical Notification Critical Value: No <Conclusion> The left ventricle is normal size. The left ventricular systolic function is normal and the ejection fraction is within normal range. The Ejection Fraction is 50-55%. Doppler and Color Flow revealed trace aortic regurgitation. There is no significant aortic valvular stenosis. Doppler and Color-flow revealed trace mitral regurgitation. Doppler and Color Flow revealed trace to mild tricuspid regurgitation with an estimated PAP of 38 mmH g. Signed by : Tyson Santos MD Electronically Approved : 11/19/2020 12:55:50
[2020-11-19] MEDS ORDERED: LIDOCAINE 2% PF 5 ML VIAL. ONE (14:03)
[2020-11-19] MEDS ORDERED: PROPOFOL 10 MG/ML (20ML) VIAL. IV ONE (14:03)
[2020-11-19] MEDS ORDERED: fentaNYL PF VIAL 100 MCG/2 ML VIAL ONE ×2 (14:04→17:44)
[2020-11-19] MEDS ORDERED: PHENYLEPHRINE 10 MG/ML VIAL. ONE (15:29)
[2020-11-19] MEDS ORDERED: ceFAZolin SODIUM IV Push 1 GM VIAL. IVP ONE (15:56)
[2020-11-19] MEDS ORDERED: ONDANSETRON PF 4 MG/2 ML VIAL. ONE (16:30)
[2020-11-19] MEDS ORDERED: DEXAMETHASONE SOD PHOS 4 MG/ML VIAL ONE (16:30)
[2020-11-19] MEDS ORDERED: SEVOFLURANE 61 TO 120 MINUTES. IH ONE (16:39)
[2020-11-19] MEDS ORDERED: IV RINGERS,LACTATED 1000ML 1,000 ML IV SCH (16:45)
[2020-11-19] MEDS ORDERED: MORPHINE SULFATE 2 MG/ML INJ. IVP PRN (16:45)
[2020-11-19] MEDS ORDERED: fentaNYL PF VIAL 100 MCG/2 ML VIAL IVP PRN ×2 (16:45)
[2020-11-19] MEDS ORDERED: PROCHLORPERAZINE 10 MG/2 ML VIAL. IVP PRN (16:45)
[2020-11-19] MEDS ORDERED: HYDROmorphone 2 MG/ML VIAL IVP PRN (16:45)
--- NOTE | 2020-11-19 17:26 | PDOC4 ---
OPERATIVE NOTE Date: Date: Nov 19, 2020 Pre-Op Diagnosis: Comminuted intertrochanteric fracture right hip Post-Op Diagnosis: Same Procedure Performed: ORIF with gamma nail fixation right hip Surgeon: Ralph Anesthesia Type: General Blood Loss: 200 cc Specimans Obtained: None Findings: See dictation Complications: None MARIA SANTOYO Jr. DO Nov 19, 2020 17:26
--- NOTE | 2020-11-19 18:12 | OP ---
DATE OF SURGERY: 11/19/2020 PREOPERATIVE DIAGNOSIS: Right hip fracture, intertrochanteric. POSTOPERATIVE DIAGNOSIS: Right hip fracture, intertrochanteric. PROCEDURE: ORIF with gamma nail fixation, right hip. SURGEON: Narciso Rosas Jr, DO. ANESTHESIA: General. COMPLICATIONS: None. ESTIMATED BLOOD LOSS: 200 mL. DESCRIPTION OF PROCEDURE: The patient was taken to the operative suite, given general anesthetic and placed on the fracture table. Closed reduction was undertaken of the hip. After the closed reduction was noted to be satisfactory in both AP and lateral projections, the right hip was then prepped and draped in a sterile fashion. Incision was made through skin and subcutaneous tissues down through the iliotibial band and down to the area of the greater trochanter. A guide pin was then placed within the tip of the trochanter and placed into the femoral canal and noted to be in good position of both AP and lateral projections. Since this was past the lesser trochanter, the triple reamer was placed in this position and noted to be a good open canal. This was removed and the IM guide was then placed down to the area of the knee. This again was noted to be in good position on AP and lateral projections. Therefore, this was overreamed with a 13 mm reamer. This was then subsequently removed and then the short gamma nail was then placed over this through down into the femoral canal in good position for screw fixation. After this was noted to be in good position and held with the guide, incision was made laterally for the locking screw. The incision was made down to the femur laterally. The guide was then placed for a 125 degree angle. This was noted to be a good relative position. Therefore, after this was used with the guide and the pin, it was placed in the appropriate depth and good orientation was noted in both AP and lateral projections in the neck and head. This was measured and noted to be 110 mm. This was then reamed to the same depth after this guide pin was removed. The femoral screw was then placed in the appropriate depth. This had excellent purchase within the bone with good bone quality noted. This was then locked from above and tightened down. This was noted to be locked into position completely locking both pieces of the IM portion and the femoral head and neck screw together. This guide system was all then removed for the proximal femoral aspect and then the distal aspect was placed. The guiding system was placed through an area of skin and subcutaneous tissues and dissection down to the lateral aspect of the femur again and the guide was placed along the area of the lateral cortex. This was drilled and noted to be a 36 mm length for a screw. Screw was placed to lock this appropriately. This locking was noted to be in good position and orientation of both AP and lateral projections. Reduction was satisfactory. Alignment was satisfactory of all hardware. Therefore, the entire guide system was then subsequently removed. The wounds were then thoroughly irrigated. Superficial tissue and the skin was reapproximated with harjit being final fixation of the skin. Sterile dressing was then applied. The patient was then taken from the operative bed to the postoperative bed, taken to the PACU in stable condition. LUCI DR: Johnson TID: [id number]
[2020-11-19] MEDS: GABAPENTIN 100 MG CAPSULE. PO SCH (18:38)
[2020-11-19] MEDS ORDERED: ALBUMIN HUMAN 25% 50 ML IV ONE (23:45)
[2020-11-20] VITALS (21 sets, daily range): BP systolic 85–111; BP diastolic 20–90
[2020-11-20] MEDS ORDERED: ALBUMIN HUMAN 5% 250 ML IV ONE
[2020-11-20] MEDS: SENNOSIDES/DOCUSATE 8.6/50MG TABLET. PO SCH ×3 (02:43→21:34)
[2020-11-20] MEDS: SIMVASTATIN 20 MG TABLET PO SCH ×2 (02:43→21:34)
[2020-11-20] MEDS: ACETAMINOPHEN 325 MG TABLET. PO PRN ×3 (02:49→17:24)
[2020-11-20 07:15] LABS: BASO % 0 % (0-3); CALCIUM 7.3 mg/dL (8.5-10.1); CREATININE 0.8 mg/dL (0.6-1.0); EOS % 0 % (0-3); GFR 68.7; LYMPH # 0.7 x10^3/uL (1.0-4.8); LYMPH % 10 % (24-48); MEAN CORPUSCULAR HEMOGLOBIN 33 pg (25-35); MEAN CORPUSCULAR HGB CONC 34 g/dL (31-37); MEAN CORPUSCULAR VOLUME 96 fL (79-100); MONO # 0.8 x10^3/uL (0.0-1.1); MONO % 11 % (0-9); NEUT # 5.6 x10^3/uL (1.8-7.7); NEUT % 79 % (31-73); PLATELET COUNT 106 x10^3/uL (140-400); POTASSIUM 4.6 mmol/L (3.5-5.1); RED BLOOD COUNT 1.76 x10^6/uL (3.50-5.40); RED CELL DISTRIBUTION WIDTH 14.4 % (11.5-14.5); WHITE BLOOD COUNT 7.1 x10^3/uL (4.0-11.0)
[2020-11-20 07:49] LABS: HEMATOCRIT 16.9 % (36.0-47.0); HEMOGLOBIN 5.7 g/dL (12.0-15.5)
--- NOTE | 2020-11-20 08:06 | CONS ---
DATE OF CONSULTATION: 11/19/2020 HISTORY OF PRESENT ILLNESS: The patient is here today for evaluation after a fall onto her right hip. She was ambulating and lost her balance yesterday evening and after that occurred, she sustained a trip and fall injury onto her right side. After that, she was unable to ambulate at all with significant and severe pain and rotational deformity noted to the lower extremity. Therefore, she was brought to the Emergency Department where after x-rays were obtained, she was noted to have a comminuted intertrochanteric fracture of the right hip. She was then subsequently admitted to the hospital and she was cleared by Cardiology today as well as being cleared by Internal Medicine for ability to undergo an appropriate fixation. PHYSICAL EXAMINATION: Today does show externally shortened rotated right lower extremity. This is very painful with any type of range of motion. This is a limited exam due to the known fracture, but the distal neurovascular status is fully intact. There is no pain with palpation of the knee or distal to that area. No other limbs are involved in this injury. The distal neurovascular status is fully intact. It should be noted that the past medical and surgical history, medications, allergies and review of systems are all reviewed with her and her family. IMPRESSION: Comminuted intertrochanteric fracture, right hip. PLAN: At this time, I have talked with her and the family extensively about the risks, complications as well as benefits and expectations of fixation, possibility for need for further surgery, etc. All questions were answered to their satisfaction and they wished to proceed with the fixation of the hip. Therefore, we will proceed with that at this time since she has been medically cleared. ELIZABETH/JENNIE/ELIAS DR: Johnson TID: [id number]
[2020-11-20] MEDS: ASPIRIN CHEWABLE 81 MG TABLET. PO SCH (09:00)
[2020-11-20] MEDS: SPIRONOLACTONE 25 MG TABLET PO SCH (09:00)
[2020-11-20] MEDS: MULTIVITAMIN with MINERAL TABLET. PO SCH (09:40)
[2020-11-20] MEDS: CHOLECALCIFEROL (VITAMIN D3) 1,000 UNIT TABLET PO SCH (09:40)
[2020-11-20] MEDS: PANTOPRAZOLE 40 MG TABLET.DR. PO SCH (09:41)
[2020-11-20] MEDS: METOPROLOL TART IMMED RELEASE 50 MG TABLET. PO SCH ×2 (09:41→21:34)
[2020-11-20] MEDS: FERROUS SULFATE 325 MG TABLET. PO SCH (09:42)
[2020-11-20] MEDS: CETIRIZINE HCL 10 MG TABLET. PO SCH (09:43)
--- NOTE | 2020-11-20 10:46 | PDOC ---
CARDIO Progress Notes Date and Time Date of Service 11/20/2020 Time of Evaluation 1030 Subjective Subjective: No Chest Pain, No shortness of breath, No Palpitations Vitals Vitals Vital Signs Date Time Temp Pulse Resp B/P (MAP) Pulse Ox O2 Delivery O2 Flow Rate FiO2 11/20/20 09:41 70 100/56 11/20/20 07:00 98.4 18 97 Room Air 98.4 11/20/20 03:00 10.0 Weight Weight [ ] Input and Output Intake and Output Intake and Output 11/20/20 07:00 Intake Total 2100 ml Output Total 1300 ml Balance 800 ml Intake Oral 100 ml IV Total 2000 ml Output Urine Total 1100 ml Estimated Blood Loss 200 ml # Voids 1 Laboratory Labs Laboratory Tests Test 11/19/20 11:10 11/20/20 06:52 Creatine Kinase 81 U/L (26-192) Troponin I Quantitative < 0.017 ng/mL (0.000-0.055) White Blood Count 7.1 x10^3/uL (4.0-11.0) Red Blood Count 1.76 x10^6/uL (3.50-5.40) Hemoglobin 5.7 g/dL (12.0-15.5) Hematocrit 16.9 % (36.0-47.0) Mean Corpuscular Volume 96 fL (79-100) Mean Corpuscular Hemoglobin 33 pg (25-35) Mean Corpuscular Hemoglobin Concent 34 g/dL (31-37) Red Cell Distribution Width 14.4 % (11.5-14.5) Platelet Count 106 x10^3/uL (140-400) Neutrophils (%) (Auto) 79 % (31-73) Lymphocytes (%) (Auto) 10 % (24-48) Monocytes (%) (Auto) 11 % (0-9) Eosinophils (%) (Auto) 0 % (0-3) Basophils (%) (Auto) 0 % (0-3) Neutrophils # (Auto) 5.6 x10^3/uL (1.8-7.7) Lymphocytes # (Auto) 0.7 x10^3/uL (1.0-4.8) Monocytes # (Auto) 0.8 x10^3/uL (0.0-1.1) Eosinophils # (Auto) 0.0 x10^3/uL (0.0-0.7) Basophils # (Auto) 0.0 x10^3/uL (0.0-0.2) Sodium Level 134 mmol/L (136-145) Potassium Level 4.6 mmol/L (3.5-5.1) Chloride Level 104 mmol/L (98-107) Carbon Dioxide Level 26 mmol/L (21-32) Anion Gap 4 (6-14) Blood Urea Nitrogen 12 mg/dL (7-20) Creatinine 0.8 mg/dL (0.6-1.0) Estimated GFR (Cockcroft-Gault) 68.7 Glucose Level 129 mg/dL (70-99) Calcium Level 7.3 mg/dL (8.5-10.1) Physical Exam HEENT: Neck Supple W Full Motion Chest: Symmetric LUNGS: Other (diminished bases) Heart: irregularly irregular (AFIB) Abdomen: Soft N/T Extremities: Other (1+ bilateral LE pitting edema) Neurology: alert, oriented, follow commands Assessment Assessment 1. Traumatic mechanical fall with right hip fracture. related to vertigo 2. Osteoporosis: on biphosphonates 3. HTN: controlled 4. HLP on home statin 5. Chronic AFIB: rate controlled. EF and LV WM nml 6. RIVERA with hx of chronic bronchitis: has been happening intermittently 7. Postoperative anemia: Hgb 5.7 8. S/P ORIF right hip: POD#1 tolerated procedure well Recommendations 1. Continue metoprolol, may hold if BP is low and after transfusion. Would need anticoagulation post surgery once anemia is better. Awaiting transfusion. ASA for the meantime. 2. Aggressive IS. SNU eval Justicifation of Admission Dx: Justifications for Admission: Justification of Admission Dx: Yes ANISH DUARTE [employer] Nov 20, 2020 10:46
--- NOTE | 2020-11-20 11:45 | NUR ---
SW following. Discussed with RN, pt from home alone, room air, cardiac diet, COVID-19 negative. Pt had surgery on 11/19/20. Pt getting two units of blood. PT/OT to work with pt when stable. SW will continue to follow.
[2020-11-20] MEDS: fentaNYL PF VIAL 100 MCG/2 ML VIAL IVP PRN ×2 (12:31→21:32)
--- NOTE | 2020-11-20 12:59 | PDOC ---
[facility] PROGRESS NOTE Date of Service DOS: DATE: 11/20/20 TIME: 12:56 Chief Complaint Chief Complaint Hip pain History of Present Illness History of Present Illness Patient is an 80-year-old female who presented overnight due to hip pain after a fall at home. Patient reports that she was getting up from her chair and felt like her head was spinning. At that point she said "things went black and next thing I knew I was waking up on the floor." She does not believe she hit her head but was having notable hip pain. Brought to the emergency room here found to have right hip fracture. Patient admitted for medical management and surgical evaluation. Patient does have a history of A. fib and requesting cardiac clearance prior to any sort of surgical intervention. Evaluated bedside patient only complaint was the right hip pain. She did report she felt like she was having some bladder pressure but needed to urinate. We will keep n.p.o. and hold anticoagulants until surgical plan. Patient made need dose of heparin or Lovenox if no surgical intervention today. 11/20 Patient underwent surgical repair yesterday. Doing well this morning says her pain is well controlled. She is eager to get out of bed and either get in chair or try ambulation. PT OT ordered. Likely will need rehab. Plan of care discussed with bedside RN. Vitals/I&O Vitals/I&O: Vital Signs Date Time Temp Pulse Resp B/P (MAP) Pulse Ox O2 Delivery O2 Flow Rate FiO2 11/20/20 12:31 Room Air 11/20/20 11:00 98.8 120 22 109/20 98.8 11/20/20 11:00 98 11/20/20 03:00 10.0 I & O 11/19/20 11/19/20 11/20/20 15:00 23:00 07:00 Intake Total 0 ml 2000 ml 100 ml Output Total 700 ml 600 ml Balance -700 ml 1400 ml 100 ml Physical Exam General: Alert, Oriented X3, Cooperative, No acute distress Heart: Regular rate, No murmurs, Other (AFIB) Lungs: Wheezing Abdomen: Soft, No tenderness Extremities: No cyanosis, No edema Skin: No breakdown, No significant lesion Labs Labs: Laboratory Tests Test 11/20/20 06:52 White Blood Count 7.1 x10^3/uL (4.0-11.0) Red Blood Count 1.76 x10^6/uL (3.50-5.40) Hemoglobin 5.7 g/dL (12.0-15.5) Hematocrit 16.9 % (36.0-47.0) Mean Corpuscular Volume 96 fL (79-100) Mean Corpuscular Hemoglobin 33 pg (25-35) Mean Corpuscular Hemoglobin Concent 34 g/dL (31-37) Red Cell Distribution Width 14.4 % (11.5-14.5) Platelet Count 106 x10^3/uL (140-400) Neutrophils (%) (Auto) 79 % (31-73) Lymphocytes (%) (Auto) 10 % (24-48) Monocytes (%) (Auto) 11 % (0-9) Eosinophils (%) (Auto) 0 % (0-3) Basophils (%) (Auto) 0 % (0-3) Neutrophils # (Auto) 5.6 x10^3/uL (1.8-7.7) Lymphocytes # (Auto) 0.7 x10^3/uL (1.0-4.8) Monocytes # (Auto) 0.8 x10^3/uL (0.0-1.1) Eosinophils # (Auto) 0.0 x10^3/uL (0.0-0.7) Basophils # (Auto) 0.0 x10^3/uL (0.0-0.2) Sodium Level 134 mmol/L (136-145) Potassium Level 4.6 mmol/L (3.5-5.1) Chloride Level 104 mmol/L (98-107) Carbon Dioxide Level 26 mmol/L (21-32) Anion Gap 4 (6-14) Blood Urea Nitrogen 12 mg/dL (7-20) Creatinine 0.8 mg/dL (0.6-1.0) Estimated GFR (Cockcroft-Gault) 68.7 Glucose Level 129 mg/dL (70-99) Calcium Level 7.3 mg/dL (8.5-10.1) Assessment and Plan Assessmemt and Plan Problems Medical Problems: (1) Closed intertrochanteric fracture of right hip Status: Acute (2) Closed right hip fracture Status: Acute (3) Fall Status: Acute Patient is an 80-year-old female presented overnight due to hip pain after a fall at home. Intertrochanteric right hip fracture, hypertension, neuropathy, atrial fibrillation not on home anticoagulation -Admit to hospitalist -Ortho and cardiology consulted in emergency room -Patient is postop day 1 from ORIF -Diet as tolerated -Hold anticoagulants for now -Home meds resumed as indicated -PT OT ordered, likely will need some sort of rehab after discharge -Family at bedside and updated on plan Comment Review of Relevant I have reviewed the following items cindy (where applicable) has been applied. Medications: Current Medications Medications (Trade) Dose Ordered Sig/Franklin Route PRN Reason Start Time Stop Time Status Last Admin Dose Admin Gabapentin (Neurontin) 100 mg DAILYWSUP PO 11/19/20 17:00 11/19/20 18:38 Simvastatin (Zocor) 20 mg QHS PO 11/19/20 21:00 11/20/20 02:43 Fentanyl Citrate (Fentanyl 2ml Vial) 50 mcg PRN Q5MIN PRN IVP MODERATE PAIN 4-6 11/19/20 16:45 11/19/20 22:00 DC 11/19/20 17:54 Albumin Human 250 ml @ 62.5 mls/hr 1X ONCE IV 11/20/20 00:00 11/20/20 03:59 DC 11/20/20 02:17 Justifications for Admission Other Justification KAJAL DE LA O MD Nov 20, 2020 12:59
[2020-11-20] MEDS: GABAPENTIN 100 MG CAPSULE. PO SCH (17:24)
[2020-11-20] MEDS: IV NORMAL SALINE 1000ML BAG 1,000 ML IV SCH (21:32)
[2020-11-21] MEDS: fentaNYL PF VIAL 100 MCG/2 ML VIAL IVP PRN ×2 (03:42→10:07)
[2020-11-21 03:43] VITALS: BP 115/67
[2020-11-21 07:00] VITALS: BP 129/75
[2020-11-21] MEDS: PANTOPRAZOLE 40 MG TABLET.DR. PO SCH (07:59)
[2020-11-21] MEDS: IV NORMAL SALINE 1000ML BAG 1,000 ML IV SCH ×2 (08:00→19:42)
[2020-11-21 09:24] LABS: HEMATOCRIT 25.7 % (36.0-47.0); HEMOGLOBIN 8.7 g/dL (12.0-15.5)
[2020-11-21] MEDS: CETIRIZINE HCL 10 MG TABLET. PO SCH (10:02)
[2020-11-21] MEDS: MULTIVITAMIN with MINERAL TABLET. PO SCH (10:02)
[2020-11-21] MEDS: FERROUS SULFATE 325 MG TABLET. PO SCH (10:02)
[2020-11-21] MEDS: CHOLECALCIFEROL (VITAMIN D3) 1,000 UNIT TABLET PO SCH (10:02)
[2020-11-21] MEDS: ASPIRIN CHEWABLE 81 MG TABLET. PO SCH (10:03)
[2020-11-21] MEDS: SPIRONOLACTONE 25 MG TABLET PO SCH (10:03)
[2020-11-21] MEDS: METOPROLOL TART IMMED RELEASE 50 MG TABLET. PO SCH ×2 (10:03→21:00)
[2020-11-21] MEDS: SENNOSIDES/DOCUSATE 8.6/50MG TABLET. PO SCH ×2 (10:03→21:10)
[2020-11-21] MEDS: ACETAMINOPHEN 325 MG TABLET. PO PRN (10:07)
[2020-11-21 11:00] VITALS: BP 124/68
[2020-11-21 15:00] VITALS: BP 98/61
[2020-11-21] MEDS: GABAPENTIN 100 MG CAPSULE. PO SCH (17:46)
[2020-11-21 19:00] VITALS: BP 106/65
[2020-11-21] MEDS: SIMVASTATIN 20 MG TABLET PO SCH (21:10)
[2020-11-21 23:00] VITALS: BP 98/58
[2020-11-22] MEDS: IV NORMAL SALINE 1000ML BAG 1,000 ML IV SCH ×3 (06:37→18:45)
[2020-11-22 07:00] VITALS: BP 117/55
[2020-11-22] MEDS: PANTOPRAZOLE 40 MG TABLET.DR. PO SCH (07:45)
--- NOTE | 2020-11-22 08:36 | PDOC ---
[facility] [facility] PROGRESS NOTE Date of Service DOS: DATE: 11/21/20 TIME: 08:35 Late entry for November 21 Chief Complaint Chief Complaint Hip pain History of Present Illness History of Present Illness Patient is an 80-year-old female who presented overnight due to hip pain after a fall at home. Patient reports that she was getting up from her chair and felt like her head was spinning. At that point she said "things went black and next thing I knew I was waking up on the floor." She does not believe she hit her head but was having notable hip pain. Brought to the emergency room here found to have right hip fracture. Patient admitted for medical management and surgical evaluation. Patient does have a history of A. fib and requesting cardiac clearance prior to any sort of surgical intervention. Evaluated bedside patient only complaint was the right hip pain. She did report she felt like she was having some bladder pressure but needed to urinate. We will keep n.p.o. and hold anticoagulants until surgical plan. Patient made n eed dose of heparin or Lovenox if no surgical intervention today. 11/20 Patient underwent surgical repair yesterday. Doing well this morning says her pain is well controlled. She is eager to get out of bed and either get in chair or try ambulation. PT OT ordered. Likely will need rehab. Plan of care discussed with bedside RN. 11/21 Postop day 2. Pain well controlled she is hoping to get out of bed with therapy when allowed. Patient will need rehab. Plan of care discussed with bedside RN. Vitals/I&O Vitals/I&O: Vital Signs Date Time Temp Pulse Resp B/P (MAP) Pulse Ox O2 Delivery O2 Flow Rate FiO2 11/22/20 07:00 98.8 95 20 117/55 (75) 95 Room Air 98.8 I & O 11/21/20 11/21/20 11/22/20 15:00 23:00 07:00 Intake Total 1019 ml Output Total 950 ml Balance 69 ml Physical Exam General: Alert, Oriented X3, Cooperative, No acute distress Heart: Regular rate, No murmurs, Other (AFIB) Lungs: Wheezing Abdomen: Soft, No tenderness Extremities: No cyanosis, No edema Skin: No breakdown, No significant lesion Labs Labs: Laboratory Tests Test 11/21/20 08:45 Hemoglobin 8.7 g/dL (12.0-15.5) Hematocrit 25.7 % (36.0-47.0) Mean Corpuscular Hemoglobin Concent 34 g/dL (31-37) Assessment and Plan Assessmemt and Plan Problems Medical Problems: (1) Closed intertrochanteric fracture of right hip Status: Acute (2) Closed right hip fracture Status: Acute (3) Fall Status: Acute Patient is an 80-year-old female presented overnight due to hip pain after a fall at home. Intertrochanteric right hip fracture, hypertension, neuropathy, atrial fibrillation not on home anticoagulation -Admit to hospitalist -Ortho and cardiology consulted in emergency room -Patient is postop day 2 from ORIF -Diet as tolerated -Hold anticoagulants for now -Home meds resumed as indicated -PT OT ordered, likely will need some sort of rehab after discharge -Family at bedside and updated on plan Comment Review of Relevant I have reviewed the following items cindy (where applicable) has been applied. Justifications for Admission Other Justification KAJAL DE LA O MD Nov 22, 2020 08:36
--- NOTE | 2020-11-22 10:04 | PN ---
DATE: 11/22/2020 She is seen on a daily basis since the operative procedure on her right hip. Every day has been much better as far as pain control is concerned. On day #1, she did have a lot of difficulty getting up and around due to her pain level as well as being a little lightheaded at that point and also undergoing blood replacement. She, however, has had the pain much better under control at this point and orthopedically, she is stable without any signs or symptoms of infection. No significant drainage from the hip wound at this point. No signs or symptoms of DVT and the distal neurovascular status is fully intact. Therefore, at this point, we will go ahead and continue with toe touch weightbearing with the use of a walker. Continue with DVT prophylaxis and pain control. ANANTH DR: Johnson TID: [id number]
[2020-11-22] MEDS: CHOLECALCIFEROL (VITAMIN D3) 1,000 UNIT TABLET PO SCH (10:27)
[2020-11-22] MEDS: FERROUS SULFATE 325 MG TABLET. PO SCH (10:27)
[2020-11-22] MEDS: MULTIVITAMIN with MINERAL TABLET. PO SCH (10:27)
[2020-11-22] MEDS: ASPIRIN CHEWABLE 81 MG TABLET. PO SCH (10:27)
[2020-11-22] MEDS: METOPROLOL TART IMMED RELEASE 50 MG TABLET. PO SCH ×2 (10:28→21:35)
[2020-11-22] MEDS: SPIRONOLACTONE 25 MG TABLET PO SCH (10:28)
[2020-11-22] MEDS: CETIRIZINE HCL 10 MG TABLET. PO SCH (10:28)
[2020-11-22] MEDS: SENNOSIDES/DOCUSATE 8.6/50MG TABLET. PO SCH ×2 (10:28→21:34)
[2020-11-22] MEDS: HEPARIN for SUB-Q USE 5,000 UNIT/ML VIAL. SQ SCH ×2 (10:35→21:37)
[2020-11-22 11:00] VITALS: BP 102/48
--- NOTE | 2020-11-22 12:18 | PDOC ---
[facility] [facility] PROGRESS NOTE Date of Service DOS: DATE: 11/22/20 TIME: 12:16 Chief Complaint Chief Complaint Hip pain History of Present Illness History of Present Illness Patient is an 80-year-old female who presented overnight due to hip pain after a fall at home. Patient reports that she was getting up from her chair and felt like her head was spinning. At that point she said "things went black and next thing I knew I was waking up on the floor." She does not believe she hit her head but was having notable hip pain. Brought to the emergency room here found to have right hip fracture. Patient admitted for medical management and surgical evaluation. Patient does have a history of A. fib and requesting cardiac clearance prior to any sort of surgical intervention. Evaluated bedside patient only complaint was the right hip pain. She did report she felt like she was having some bladder pressure but needed to urinate. We will keep n.p.o. and hold anticoagulants until surgical plan. Patient made need dose of heparin or Lovenox if no surgical intervention today. 11/20 Patient underwent surgical repair yesterday. Doing well this morning says her is trying to ambulate as much she is. She is eager to get out of bed and either get in chair or try ambulation. PT OT ordered. Likely will need rehab. Plan of care discussed with bedside RN. 11/21 Postop day 2. Pain well controlled she is hoping to get out of bed with therapy when allowed. Patient will need rehab. Plan of care discussed with bedside RN. 11/22 Patient seen at bedside. Pain is well controlled, she was hoping to ambulate as much as possible. Will need acute rehab placement per physical therapy and Occupational Therapy. Continue current plan otherwise. Vitals/I&O Vitals/I&O: Vital Signs Date Time Temp Pulse Resp B/P (MAP) Pulse Ox O2 Delivery O2 Flow Rate FiO2 11/22/20 11:00 98.8 75 18 102/48 (66) 98 Room Air 98.8 I & O 11/21/20 11/21/20 11/22/20 15:00 23:00 07:00 Intake Total 1019 ml Output Total 950 ml Balance 69 ml Physical Exam General: Alert, Oriented X3, Cooperative, No acute distress Heart: Regular rate, No murmurs, Other (AFIB) Lungs: Wheezing Abdomen: Soft, No tenderness Extremities: No cyanosis, No edema Skin: No breakdown, No significant lesion Labs Labs: Labs reviewed Assessment and Plan Assessmemt and Plan Problems Medical Problems: (1) Closed intertrochanteric fracture of right hip Status: Acute (2) Closed right hip fracture Status: Acute (3) Fall Status: Acute Patient is an 80-year-old female presented overnight due to hip pain after a fall at home. Intertrochanteric right hip fracture, hypertension, neuropathy, atrial fibrillation not on home anticoagulation -Admit to hospitalist -Ortho and cardiology consulted in emergency room -Patient is postop day 3 from ORIF -Diet as tolerated -DVT prophylaxis -Home meds resumed as indicated -PT OT ordered, likely will need some sort of rehab after discharge -Acute rehab at discharge Comment Review of Relevant I have reviewed the following items cindy (where applicable) has been applied. Medications: Current Medications Medications (Trade) Dose Ordered Sig/Franklin Route PRN Reason Start Time Stop Time Status Last Admin Dose Admin Heparin Sodium (Porcine) (Heparin Sodium) 5,000 unit Q12HR SQ 11/22/20 09:00 11/22/20 10:35 Justifications for Admission Other Justification KAJAL DE LA O MD Nov 22, 2020 12:18
[2020-11-22 12:20] LABS: HEMATOCRIT 22.7 % (36.0-47.0); HEMOGLOBIN 7.6 g/dL (12.0-15.5); RED BLOOD COUNT 2.52 x10^6/uL (3.50-5.40); RED CELL DISTRIBUTION WIDTH 20.7 % (11.5-14.5); WHITE BLOOD COUNT 6.9 x10^3/uL (4.0-11.0)
[2020-11-22 15:00] VITALS: BP 98/61
[2020-11-22] MEDS: GABAPENTIN 100 MG CAPSULE. PO SCH (16:47)
[2020-11-22 19:00] VITALS: BP 108/50
[2020-11-22] MEDS: SIMVASTATIN 20 MG TABLET PO SCH (21:34)
[2020-11-22 23:00] VITALS: BP 128/72
[2020-11-23 03:40] VITALS: BP 101/51
[2020-11-23 04:40] LABS: BASO % 1 % (0-3); EOS # 0.1 x10^3/uL (0.0-0.7); EOS % 2 % (0-3); HEMATOCRIT 23.1 % (36.0-47.0); HEMOGLOBIN 7.9 g/dL (12.0-15.5); LYMPH # 1.5 x10^3/uL (1.0-4.8); LYMPH % 21 % (24-48); MEAN CORPUSCULAR HEMOGLOBIN 30 pg (25-35); MEAN CORPUSCULAR HGB CONC 34 g/dL (31-37); MEAN CORPUSCULAR VOLUME 89 fL (79-100); MONO # 1.1 x10^3/uL (0.0-1.1); MONO % 15 % (0-9); NEUT # 4.2 x10^3/uL (1.8-7.7); NEUT % 61 % (31-73); PLATELET COUNT 136 x10^3/uL (140-400); RED BLOOD COUNT 2.59 x10^6/uL (3.50-5.40); RED CELL DISTRIBUTION WIDTH 19.7 % (11.5-14.5); WHITE BLOOD COUNT 6.9 x10^3/uL (4.0-11.0)
[2020-11-23 07:00] VITALS: BP 132/71
[2020-11-23] MEDS: FERROUS SULFATE 325 MG TABLET. PO SCH (10:18)
[2020-11-23] MEDS: CETIRIZINE HCL 10 MG TABLET. PO SCH (10:19)
[2020-11-23] MEDS: CHOLECALCIFEROL (VITAMIN D3) 1,000 UNIT TABLET PO SCH (10:20)
[2020-11-23] MEDS: PANTOPRAZOLE 40 MG TABLET.DR. PO SCH (10:21)
[2020-11-23] MEDS: METOPROLOL TART IMMED RELEASE 50 MG TABLET. PO SCH ×2 (10:21→20:57)
[2020-11-23] MEDS: ASPIRIN CHEWABLE 81 MG TABLET. PO SCH (10:22)
[2020-11-23] MEDS: MULTIVITAMIN with MINERAL TABLET. PO SCH (10:22)
[2020-11-23] MEDS: SPIRONOLACTONE 25 MG TABLET PO SCH (10:24)
[2020-11-23] MEDS: HEPARIN for SUB-Q USE 5,000 UNIT/ML VIAL. SQ SCH ×2 (10:40→21:03)
[2020-11-23 11:00] VITALS: BP 134/54
--- NOTE | 2020-11-23 12:28 | NUR ---
JESSIE following. Discussed with RN, pt from home alone, room air, cardiac diet. COVID-19 negative. Therapy recommending ARU. JESSIE met with pt, pt feeling wiped out and does not want to go to [facility] or [facility]. Pt agreeable to [facility], would like [facility]. JESSIE faxed referral. Pt will need another COVID-19 PCR. RN notified. JESSIE will continue to follow. Addendum: 11/23/20 at 1616 by GEOVANNA ROMAN Pt accepted at [facility], pending repeat negative PCR test. Plan for discharge tomorrow. ANNA notified.
--- NOTE | 2020-11-23 12:33 | PDOC ---
[facility] [facility] PROGRESS NOTE Date of Service DOS: DATE: 11/23/20 TIME: 12:13 Chief Complaint Chief Complaint A/P: Comminuted intertrochanteric fracture, right hip - s/p ORIF Fall at home Acute anemia Hyponatremia Osteoporosis: on biphosphonates HTN: controlled HLP on home statin Chronic AFIB: rate controlled RIVERA with hx of chronic bronchitis: has been happening intermittently History of Present Illness History of Present Illness Ms Parada is an 80-year-old female w/ PMHx Afib, HTN, HLD who presented due to hip pain after a fall at home. Patient reports that she was getting up from her chair and felt like her head was spinning. At that point she said "things went black and next thing I knew I was waking up on the floor." She does not believe she hit her head but was having notable hip pain. Brought to the emergency room here found to have right hip fracture. Patient admitted for medical management and surgical evaluation. Patient does have a history of A. fib and requesting cardiac clearance prior to any sort of surgical intervention. Evaluated bedside patient only complaint was the right hip pain. She did report she felt like she was having some bladder pressure but needed to urinate. We will keep n.p.o. and hold anticoagulants until surgical plan. Patient made need dose of heparin or Lovenox if no surgical intervention today. 11/20: Patient underwent surgical repair yesterday. Doing well this morning says her is trying to ambulate as much she is. She is eager to get out of bed and either get in chair or try ambulation. PT OT ordered. Likely will need rehab. Plan of care discussed with bedside RN. 11/21: Postop day 2. Pain well controlled she is hoping to get out of bed with therapy when allowed. Patient will need rehab. Plan of care discussed with bedside RN. 11/22: Patient seen at bedside. Pain is well controlled, she was hoping to ambulate as much as possible. Will need acute rehab placement per physical therapy and Occupational Hb 7.9. She has not had a bowel movement yet. Still feeling weak and painful moving. Vitals/I&O Vitals/I&O: Vital Signs Date Time Temp Pulse Resp B/P (MAP) Pulse Ox O2 Delivery O2 Flow Rate FiO2 11/23/20 10:21 87 132/71 11/23/20 07:00 98.5 18 95 Room Air 98.5 I & O 11/22/20 11/22/20 11/23/20 15:00 23:00 07:00 Output Total 1550 ml 1450 ml 2300 ml Balance -1550 ml -1450 ml -2300 ml Physical Exam General: Alert, Oriented X3, Cooperative, No acute distress Heart: Regular rate, No murmurs, Other (AFIB) Lungs: Wheezing Abdomen: Soft, No tenderness Extremities: No cyanosis, No edema Skin: No breakdown, No significant lesion Labs Labs: Laboratory Tests Test 11/23/20 04:00 White Blood Count 6.9 x10^3/uL (4.0-11.0) Red Blood Count 2.59 x10^6/uL (3.50-5.40) Hemoglobin 7.9 g/dL (12.0-15.5) Hematocrit 23.1 % (36.0-47.0) Mean Corpuscular Volume 89 fL (79-100) Mean Corpuscular Hemoglobin 30 pg (25-35) Mean Corpuscular Hemoglobin Concent 34 g/dL (31-37) Red Cell Distribution Width 19.7 % (11.5-14.5) Platelet Count 136 x10^3/uL (140-400) Neutrophils (%) (Auto) 61 % (31-73) Lymphocytes (%) (Auto) 21 % (24-48) Monocytes (%) (Auto) 15 % (0-9) Eosinophils (%) (Auto) 2 % (0-3) Basophils (%) (Auto) 1 % (0-3) Neutrophils # (Auto) 4.2 x10^3/uL (1.8-7.7) Lymphocytes # (Auto) 1.5 x10^3/uL (1.0-4.8) Monocytes # (Auto) 1.1 x10^3/uL (0.0-1.1) Eosinophils # (Auto) 0.1 x10^3/uL (0.0-0.7) Basophils # (Auto) 0.0 x10^3/uL (0.0-0.2) Assessment and Plan Assessmemt and Plan Problems Medical Problems: (1) Closed intertrochanteric fracture of right hip Status: Acute (2) Closed right hip fracture Status: Acute (3) Fall Status: Acute Comment Review of Relevant I have reviewed the following items cindy (where applicable) has been applied. Justifications for Admission Other Justification KAJAL HINKLE MD Nov 23, 2020 12:33
[2020-11-23] MEDS: ACETAMINOPHEN 325 MG TABLET. PO PRN ×2 (12:35→18:29)
[2020-11-23 15:00] VITALS: BP 92/65
[2020-11-23] MEDS: POLYETHYLENE GLYCOL 3350 17 GM PACKET. PO SCH (18:02)
[2020-11-23] MEDS: GABAPENTIN 100 MG CAPSULE. PO SCH (18:02)
[2020-11-23] MEDS: SENNOSIDES/DOCUSATE 8.6/50MG TABLET. PO SCH ×2 (18:03→20:57)
[2020-11-23 19:00] VITALS: BP 107/63
[2020-11-23] MEDS: SIMVASTATIN 20 MG TABLET PO SCH (20:57)
[2020-11-23] MEDS ORDERED: PSYLLIUM HUSK (SUGAR FREE) 1 PKT PACKET PO SCH (21:00)
[2020-11-23 22:46] VITALS: BP 114/63
[2020-11-24 03:00] VITALS: BP 110/60
[2020-11-24 05:42] LABS: BASO % 1 % (0-3); EOS # 0.2 x10^3/uL (0.0-0.7); EOS % 4 % (0-3); HEMATOCRIT 25.1 % (36.0-47.0); HEMOGLOBIN 8.5 g/dL (12.0-15.5); LYMPH # 1.3 x10^3/uL (1.0-4.8); LYMPH % 19 % (24-48); MEAN CORPUSCULAR HEMOGLOBIN 31 pg (25-35); MEAN CORPUSCULAR HGB CONC 34 g/dL (31-37); MEAN CORPUSCULAR VOLUME 90 fL (79-100); MONO % 15 % (0-9); NEUT # 4.2 x10^3/uL (1.8-7.7); NEUT % 62 % (31-73); PLATELET COUNT 173 x10^3/uL (140-400); RED BLOOD COUNT 2.79 x10^6/uL (3.50-5.40); WHITE BLOOD COUNT 6.8 x10^3/uL (4.0-11.0)
[2020-11-24 07:00] VITALS: BP 147/72
[2020-11-24] MEDS: PANTOPRAZOLE 40 MG TABLET.DR. PO SCH (07:38)
[2020-11-24] MEDS: METOPROLOL TART IMMED RELEASE 50 MG TABLET. PO SCH (09:21)
[2020-11-24] MEDS: MULTIVITAMIN with MINERAL TABLET. PO SCH (09:21)
[2020-11-24] MEDS: SENNOSIDES/DOCUSATE 8.6/50MG TABLET. PO SCH (09:21)
[2020-11-24] MEDS: CHOLECALCIFEROL (VITAMIN D3) 1,000 UNIT TABLET PO SCH (09:21)
[2020-11-24] MEDS: CETIRIZINE HCL 10 MG TABLET. PO SCH (09:22)
[2020-11-24] MEDS: FERROUS SULFATE 325 MG TABLET. PO SCH (09:22)
[2020-11-24] MEDS: POLYETHYLENE GLYCOL 3350 17 GM PACKET. PO SCH (09:22)
[2020-11-24] MEDS: ASPIRIN CHEWABLE 81 MG TABLET. PO SCH (09:22)
[2020-11-24] MEDS: HEPARIN for SUB-Q USE 5,000 UNIT/ML VIAL. SQ SCH (09:28)
[2020-11-24] MEDS: SPIRONOLACTONE 25 MG TABLET PO SCH (09:30)
[2020-11-24 11:00] VITALS: BP 111/64
[2020-11-24] MEDS ORDERED: POLY17PO52 PO (11:26)
[2020-11-24] MEDS ORDERED: HEPA50003 SQ (11:26)
[2020-11-24] MEDS ORDERED: ACET325T21 PO (11:26)
[2020-11-24] MEDS ORDERED: PSYL3.4P PO (11:26)
--- NOTE | 2020-11-24 11:41 | SNU/HH DC ---
DISCHARGE ORDERS DISCHARGE INFORMATION: DISCHARGE DATE: Nov 24, 2020 FINAL DIAGNOSIS Problems Medical Problems: (1) Closed intertrochanteric fracture of right hip Status: Acute (2) Closed right hip fracture Status: Acute (3) Fall Status: Acute CONDITION ON DISCHARGE: Stable CODE STATUS: Code Status: Full CUSTODIAL: SNF STAY <30 DAYS: Yes POST DISCHARGE ORDERS: ACTIVITY ORDERS: Progressive ambulation WEIGHT BEARING STATUS: Touch down weight bearing BATHING ORDERS: Shower-keep dressing dry WOUND/INCISION CARE: Ice to area for comfort, Keep wound/cast CDI, Routine catheter care (Can pull witt when ambulating) CHECKS AFTER DISCHARGE: CHECKS AFTER DISCHARGE: Check blood press - daily FOLLOW-UP: LAB ORDERS FOR FOLLOW-UP: CBC every other day Additional Instructions: [facility] [address] [place] [address] [facility] [id number] [place] [address] Call to follow up with cardiology [address] [place] [address] TREATMENT/EQUIPMENT ORDERS: Physical Therapy For: Evalulation/Treatment Occupational Therapy For: Evaluation/Treatment DISCHARGE MEDICATIONS: Home Meds Active Scripts Psyllium Husk/Aspartame (METAMUCIL FIBER SINGLES PACKET) 3.4 Gm Powd.pack, 1 PKT PO QHS for Constipation for 30 Days, #30 PKT Prov:KAJAL HINKLE MD 11/24/20 Polyethylene Glycol 3350 (POLYETHYLENE GLYCOL 3350) 17 Gm Powd.pack, 17 GM PO DAILY for Constipation for 30 Days, #30 PKT Prov:KAJAL HINKLE MD 11/24/20 Acetaminophen (ACETAMINOPHEN) 325 Mg Tablet, 650 MG PO PRN Q6HRS PRN for Headaches, Temp > 101.5F for 30 Days, #120 TAB Prov:KAJAL HINKLE MD 11/24/20 Heparin Sodium,Porcine (HEPARIN SODIUM) 5,000 Unit/1 Ml Vial, 5000 UNIT SQ Q12HR for Thromboprophylaxis for 23 Days, #46 EACH Prov:KAJAL HINKLE MD 11/24/20 Reported Medications Aspirin (Children's Aspirin) 81 Mg Tab.chew, 1 TAB PO DAILY for prophylaxis for 30 Days, #30 TAB 0 Refills 11/19/20 Ferrous Sulfate (IRON) 325 Mg Tablet, 1 TAB PO DAILY for supplement for 30 Days, #30 TAB 0 Refills 11/19/20 Omeprazole Magnesium (PRILOSEC OTC) 20 Mg Tablet.dr, 1 TAB PO DAILY for gerd for 30 Days, #30 TAB 0 Refills 11/19/20 Mv-Mn/Iron/Fa/Herbal Cmplx#190 (VITAMIN D3 COMPLETE CAPLET) 1 Each Tablet, 2000 UNITS PO DAILY for supplement, TAB 11/19/20 Gabapentin (NEURONTIN ) 100 Mg Capsule, 100 MG PO DAILYWSUP for NEUROGENIC PAIN, CAP 11/19/20 Simvastatin (SIMVASTATIN) 20 Mg Tablet, 1 TAB PO QHS for cholesterol, #30 TAB 5 Refills 11/19/20 Spironolactone (SPIRONOLACTONE) 25 Mg Tablet, 1 TAB PO DAILY for HTN, #90 TAB 1 Refill 11/19/20 Metoprolol Tartrate (Lopressor) 100 Mg Tablet, 1 TAB PO BID for HTN for 30 Days, #60 TAB 0 Refills 11/19/20 Cetirizine Hcl (ZYRTEC) 10 Mg Tablet, 1 TAB PO DAILY for allergies, #30 TAB 2 Refills 11/19/20 Discontinued Reported Medications Triamcinolone Acetonide (TRIAMCINOLONE ACETONIDE 0.025% CREAM) 15 Gm Cream..g., 1 TATYANA TP BID PRN for dry skin, #30 GM 11/19/20 KAJAL HINKLE MD Nov 24, 2020 11:41
--- NOTE | 2020-11-24 11:43 | PDOC ---
[employer] [facility] PROGRESS NOTE Date of Service DOS: DATE: 11/24/20 TIME: 11:42 Chief Complaint Chief Complaint A/P: Comminuted intertrochanteric fracture, right hip - s/p ORIF Fall at home Acute anemia Hyponatremia Osteoporosis: on biphosphonates HTN: controlled HLP on home statin Chronic AFIB: rate controlled RIVERA with hx of chronic bronchitis: has been happening intermittently History of Present Illness History of Present Illness Ms Parada is an 80-year-old female w/ PMHx Afib, HTN, HLD who presented due to hip pain after a fall at home. Patient reports that she was getting up from her chair and felt like her head was spinning. At that point she said "things went black and next thing I knew I was waking up on the floor." She does not believe she hit her head but was having notable hip pain. Brought to the emergency room here found to have right hip fracture. Patient admitted for medical management and surgical evaluation. Patient does have a history of A. fib and requesting cardiac clearance prior to any sort of surgical intervention. Evaluated bedside patient only complaint was the right hip pain. She did report she felt like she was having some bladder pressure but needed to urinate. We will keep n.p.o. and hold anticoagulants until surgical plan. Patient made need dose of heparin or Lovenox if no surgical intervention today. 11/20: Patient underwent surgical repair yesterday. Doing well this morning says her is trying to ambulate as much she is. She is eager to get out of bed and either get in chair or try ambulation. PT OT ordered. Likely will need rehab. Plan of care discussed with bedside RN. 11/21: Postop day 2. Pain well controlled she is hoping to get out of bed with therapy when allowed. Patient will need rehab. Plan of care discussed with bedside RN. 11/22: Patient seen at bedside. Pain is well controlled, she was hoping to ambulate as much as possible. Will need acute rehab placement per physical therapy and Occupational 11/23: Hb 7.9. She has not had a bowel movement yet. Still feeling weak and painful moving, only wants tylenol for pain. Is toe-touch weight bearing. Having fecal smears. Not ready to have Rizvi cath removed given she is only toe-touch weightbearing. Approved for SNF for rehab and wants to go today. Follow-up CBC there and have heparin 5000 units twice daily for thromboprophylaxis. For her A. fib she has only been maintained on aspirin outpatient. In discussion with cardiology for possible referral for watchman procedure. Vitals/I&O Vitals/I&O: Vital Signs Date Time Temp Pulse Resp B/P (MAP) Pulse Ox O2 Delivery O2 Flow Rate FiO2 11/24/20 09:21 77 147/72 11/24/20 07:30 Room Air 11/24/20 07:00 98.7 18 98 98.7 I & O 11/23/20 11/23/20 11/24/20 15:00 23:00 07:00 Output Total 1800 ml 400 ml Balance -1800 ml -400 ml Physical Exam General: Alert, Oriented X3, Cooperative, No acute distress Heart: Regular rate, No murmurs, Other (AFIB) Lungs: Wheezing Abdomen: Soft, No tenderness Extremities: No cyanosis, No edema Skin: No breakdown, No significant lesion Labs Labs: Laboratory Tests Test 11/23/20 14:10 11/24/20 05:10 SARS-CoV-2 RNA (JUDY) Negative (Negative) White Blood Count 6.8 x10^3/uL (4.0-11.0) Red Blood Count 2.79 x10^6/uL (3.50-5.40) Hemoglobin 8.5 g/dL (12.0-15.5) Hematocrit 25.1 % (36.0-47.0) Mean Corpuscular Volume 90 fL (79-100) Mean Corpuscular Hemoglobin 31 pg (25-35) Mean Corpuscular Hemoglobin Concent 34 g/dL (31-37) Red Cell Distribution Width 20.0 % (11.5-14.5) Platelet Count 173 x10^3/uL (140-400) Neutrophils (%) (Auto) 62 % (31-73) Lymphocytes (%) (Auto) 19 % (24-48) Monocytes (%) (Auto) 15 % (0-9) Eosinophils (%) (Auto) 4 % (0-3) Basophils (%) (Auto) 1 % (0-3) Neutrophils # (Auto) 4.2 x10^3/uL (1.8-7.7) Lymphocytes # (Auto) 1.3 x10^3/uL (1.0-4.8) Monocytes # (Auto) 1.0 x10^3/uL (0.0-1.1) Eosinophils # (Auto) 0.2 x10^3/uL (0.0-0.7) Basophils # (Auto) 0.0 x10^3/uL (0.0-0.2) Assessment and Plan Assessmemt and Plan Problems Medical Problems: (1) Closed intertrochanteric fracture of right hip Status: Acute (2) Closed right hip fracture Status: Acute (3) Fall Status: Acute Comment Review of Relevant I have reviewed the following items cindy (where applicable) has been applied. Medications: Current Medications Medications (Trade) Dose Ordered Sig/Franklin Route PRN Reason Start Time Stop Time Status Last Admin Dose Admin Polyethylene Glycol (miraLAX PACKET) 17 gm DAILY PO 11/23/20 12:45 11/24/20 09:22 Justifications for Admission Other Justification KAJAL HINKLE MD Nov 24, 2020 11:43
--- NOTE | 2020-11-24 11:49 | PDOC3 ---
Discharge Summary Visit Information Date of Admission: Nov 18, 2020 Date of Discharge: Nov 24, 2020 Admitting Diagnosis: Right hip fracture Final Diagnosis Problems Medical Problems: (1) Closed intertrochanteric fracture of right hip Status: Acute (2) Closed right hip fracture Status: Acute (3) Fall Status: Acute Brief Hospital Course Allergies Allergies Coded Allergies Type Severity Reaction Last Updated Verified silver sulfadiazine Allergy Severe severe rash 11/19/20 Yes zinc Allergy Severe severe rash from silvadene 11/19/20 Yes Sulfa (Sulfonamide Antibiotics) Allergy Intermediate "i just know she is allergic" 11/19/20 Yes erythromycin base Allergy Intermediate unknown "i just know she is allergic" 11/19/20 Yes lisinopril Allergy Intermediate Rash 11/19/20 Yes Vital Signs Vital Signs Date Time Temp Pulse Resp B/P (MAP) Pulse Ox O2 Delivery O2 Flow Rate FiO2 11/24/20 09:21 77 147/72 11/24/20 07:30 Room Air 11/24/20 07:00 98.7 18 98 98.7 Lab Results Laboratory Tests Test 11/23/20 04:00 11/23/20 14:10 11/24/20 05:10 White Blood Count 6.9 x10^3/uL (4.0-11.0) 6.8 x10^3/uL (4.0-11.0) Red Blood Count 2.59 x10^6/uL (3.50-5.40) 2.79 x10^6/uL (3.50-5.40) Hemoglobin 7.9 g/dL (12.0-15.5) 8.5 g/dL (12.0-15.5) Hematocrit 23.1 % (36.0-47.0) 25.1 % (36.0-47.0) Mean Corpuscular Volume 89 fL (79-100) 90 fL (79-100) Mean Corpuscular Hemoglobin 30 pg (25-35) 31 pg (25-35) Mean Corpuscular Hemoglobin Concent 34 g/dL (31-37) 34 g/dL (31-37) Red Cell Distribution Width 19.7 % (11.5-14.5) 20.0 % (11.5-14.5) Platelet Count 136 x10^3/uL (140-400) 173 x10^3/uL (140-400) Neutrophils (%) (Auto) 61 % (31-73) 62 % (31-73) Lymphocytes (%) (Auto) 21 % (24-48) 19 % (24-48) Monocytes (%) (Auto) 15 % (0-9) 15 % (0-9) Eosinophils (%) (Auto) 2 % (0-3) 4 % (0-3) Basophils (%) (Auto) 1 % (0-3) 1 % (0-3) Neutrophils # (Auto) 4.2 x10^3/uL (1.8-7.7) 4.2 x10^3/uL (1.8-7.7) Lymphocytes # (Auto) 1.5 x10^3/uL (1.0-4.8) 1.3 x10^3/uL (1.0-4.8) Monocytes # (Auto) 1.1 x10^3/uL (0.0-1.1) 1.0 x10^3/uL (0.0-1.1) Eosinophils # (Auto) 0.1 x10^3/uL (0.0-0.7) 0.2 x10^3/uL (0.0-0.7) Basophils # (Auto) 0.0 x10^3/uL (0.0-0.2) 0.0 x10^3/uL (0.0-0.2) SARS-CoV-2 RNA (JUDY) Negative (Negative) Laboratory Tests Test 11/23/20 14:10 11/24/20 05:10 SARS-CoV-2 RNA (JUDY) Negative (Negative) White Blood Count 6.8 x10^3/uL (4.0-11.0) Red Blood Count 2.79 x10^6/uL (3.50-5.40) Hemoglobin 8.5 g/dL (12.0-15.5) Hematocrit 25.1 % (36.0-47.0) Mean Corpuscular Volume 90 fL (79-100) Mean Corpuscular Hemoglobin 31 pg (25-35) Mean Corpuscular Hemoglobin Concent 34 g/dL (31-37) Red Cell Distribution Width 20.0 % (11.5-14.5) Platelet Count 173 x10^3/uL (140-400) Neutrophils (%) (Auto) 62 % (31-73) Lymphocytes (%) (Auto) 19 % (24-48) Monocytes (%) (Auto) 15 % (0-9) Eosinophils (%) (Auto) 4 % (0-3) Basophils (%) (Auto) 1 % (0-3) Neutrophils # (Auto) 4.2 x10^3/uL (1.8-7.7) Lymphocytes # (Auto) 1.3 x10^3/uL (1.0-4.8) Monocytes # (Auto) 1.0 x10^3/uL (0.0-1.1) Eosinophils # (Auto) 0.2 x10^3/uL (0.0-0.7) Basophils # (Auto) 0.0 x10^3/uL (0.0-0.2) Brief Hospital Course Ms Parada is an 80-year-old female w/ PMHx Afib, HTN, HLD who presented due to hip pain after a fall at home. Patient reports that she was getting up from her chair and felt like her head was spinning. At that point she said "things went black and next thing I knew I was waking up on the floor." She does not believe she hit her head but was having notable hip pain. Brought to the emergency room here found to have right hip fracture. Patient admitted for medical management and surgical evaluation. Patient does have a history of A. fib and requesting cardiac clearance prior to any sort of surgical intervention. Evaluated bedside patient only complaint was the right hip pain. She did report she felt like she was having some bladder pressure but needed to urinate. We will keep n.p.o. and hold anticoagulants until surgical plan. Patient made need dose of heparin or Lovenox if no surgical intervention today. 11/20: Patient underwent surgical repair yesterday. Doing well this morning says her is trying to ambulate as much she is. She is eager to get out of bed and either get in chair or try ambulation. PT OT ordered. Likely will need rehab. Plan of care discussed with bedside RN. 11/21: Postop day 2. Pain well controlled she is hoping to get out of bed with therapy when allowed. Patient will need rehab. Plan of care discussed with bedside RN. 11/22: Patient seen at bedside. Pain is well controlled, she was hoping to ambulate as much as possible. Will need acute rehab placement per physical therapy and Occupational 11/23: Hb 7.9. She has not had a bowel movement yet. Still feeling weak and painful moving, only wants tylenol for pain. Is toe-touch weight bearing. Having fecal smears. Not ready to have Rizvi cath removed given she is only toe-touch weightbearing. Approved for SNF for rehab and wants to go today. Follow-up CBC there and have heparin 5000 units twice daily for thromboprophylaxis. For her A. fib she has only been maintained on aspirin outpatient. In discussion with cardiology for possible referral for watchman procedure. Consults: Cardiology, orthopedic surgery Problem list: Comminuted intertrochanteric fracture, right hip - s/p ORIF Fall at home Acute anemia Hyponatremia Osteoporosis: on biphosphonates HTN: controlled HLP on home statin Chronic AFIB: rate controlled RIVERA with hx of chronic bronchitis: has been happening intermittently Greater than 30 minutes spent on dc to SNF Discharge Information Condition at Discharge: Improved Follow Up: Weeks (1) Disposition/Orders: D/C to Another Facility (PP) Scheduled Aspirin (Children's Aspirin) 81 Mg Tab.chew, 1 TAB PO DAILY for prophylaxis for 30 Days, #30 Ref 0 (Reported) Entered as Reported by: Lamberto Blanco on 11/19/20107 Last Action: Continued on 11/19/20647 by Lamberto Blanco Cetirizine Hcl (Zyrtec) 10 Mg Tablet, 1 TAB PO DAILY for allergies, #30 Ref 2 (Reported) Entered as Reported by: Lamberto Blanco on 11/19/20107 Last Action: Continued on 11/19/20647 by Lamberto Blanco Ferrous Sulfate (Iron) 325 Mg Tablet, 1 TAB PO DAILY for supplement for 30 Days, #30 Ref 0 (Reported) Entered as Reported by: Lamberto Blanco on 11/19/20107 Last Action: Continued on 11/19/20647 by Lamberto Blanco Gabapentin (Neurontin ) 100 Mg Capsule, 100 MG PO DAILYWSUP for NEUROGENIC PAIN, (Reported) Entered as Reported by: Lamberto Blanco on 11/19/20107 Last Action: Continued on 11/19/20647 by Lamberto Blanco Heparin Sodium,Porcine (Heparin Sodium) 5,000 Unit/1 Ml Vial, 5,000 UNIT SQ Q12HR for Thromboprophylaxis for 23 Days, #46 Prescribed by: KAJAL HINKLE MD on 11/24/206 Metoprolol Tartrate (Lopressor) 100 Mg Tablet, 1 TAB PO BID for HTN for 30 Days, #60 Ref 0 (Reported) Entered as Reported by: Lamberto Blanco on 11/19/20107 Last Action: Converted on 11/19/20647 by Lamberto Blanco Mv-Mn/Iron/Fa/Herbal Cmplx#190 (Vitamin D3 Complete Caplet) 1 Each Tablet, 2,000 UNITS PO DAILY for supplement, (Reported) Entered as Reported by: Lamberto Blanco on 11/19/20107 Last Action: Converted on 11/19/20647 by Lamberto Blanco Omeprazole Magnesium (Prilosec Otc) 20 Mg Tablet.dr, 1 TAB PO DAILY for gerd for 30 Days, #30 Ref 0 (Reported) Entered as Reported by: Lamberto Blanco on 11/19/20107 Last Action: Converted on 11/19/20647 by Lamberto Blanco Polyethylene Glycol 3350 (Polyethylene Glycol 3350) 17 Gm Powd.pack, 17 GM PO DAILY for Constipation for 30 Days, #30 Prescribed by: KAJAL HINKLE MD on 11/24/20 1126 Psyllium Husk/Aspartame (Metamucil Fiber Singles Packet) 3.4 Gm Powd.pack, 1 PKT PO QHS for Constipation for 30 Days, #30 Prescribed by: KAJAL HINKLE MD on 11/24/20 1126 Simvastatin (Simvastatin) 20 Mg Tablet, 1 TAB PO QHS for cholesterol, #30 Ref 5 (Reported) Entered as Reported by: Lamberto Blanco on 11/19/20107 Last Action: Continued on 11/19/20647 by Lamberto Blanco Spironolactone (Spironolactone) 25 Mg Tablet, 1 TAB PO DAILY for HTN, #90 Ref 1 (Reported) Entered as Reported by: Lamberto Blanco on 9/9/21 0108 Last Action: Continued on 11/19/20 0648 by Lamberto Blanco Scheduled PRN Acetaminophen (Acetaminophen) 325 Mg Tablet, 650 MG PO PRN Q6HRS PRN for Headaches, Temp > 101.5F for 30 Days, #120 Prescribed by: KAJAL HINKLE MD on 11/24/20 1126 Discontinued Medications Triamcinolone Acetonide (Triamcinolone Acetonide 0.025% Cream) 15 Gm Cream..g., 1 TATYANA TP BID PRN for dry skin, #30 (Reported) Entered as Reported by: Lamberto Blanco on 11/19/20107 Last Action: New Order on 11/19/20107 by Lamberto Blanco Justicifation of Admission Dx: Justifications for Admission: Justification of Admission Dx: Yes KAJAL HINKLE MD Nov 24, 2020 11:49
--- NOTE | 2020-11-24 11:59 | NUR ---
SW following. Discussed with RN, discharge orders faxed to [facility]. Transportation arranged with [facility] transport for [address]. RN and [facility] notified. SW will continue to follow.
--- NOTE | 2020-11-24 13:52 | NUR ---
Discharge Note: TANG CAMARA Discharge instructions and discharge home medications reviewed with Other facility, Antionette RN and a copy given. All questions have been answered and understanding verbalized. The following instructions and handouts were given: copy of chart and discharge instructions. Discontinued lines and drains: Peripheral IV discontinued intact. [facility] Transport Personnel via Wheelchair
== END 2020-11-24 14:00 | DRG 481 ==
LOC: ER 19:09 → 5 NORTH 20:50
PROVIDERS: ADMIT Internal Medicine; ATTEND Internal Medicine
PROC: 0QS606Z Reposition Right Upper Femur with Intramedullary Internal Fixation Device, Open Approach (ICD-10-PCS; principal; 2020-11-19 15:00)
PROC: 30233N1 Transfusion of Nonautologous Red Blood Cells into Peripheral Vein, Percutaneous Approach (ICD-10-PCS; 2020-11-20)
DX: S72.141A Displaced intertrochanteric fracture of right femur, initial encounter for closed fracture (principal); I48.20 Chronic atrial fibrillation, unspecified; E87.1 Hypo-osmolality and hyponatremia; D64.9 Anemia, unspecified; E78.5 Hyperlipidemia, unspecified; I10 Essential (primary) hypertension; Z20.822 Contact with and (suspected) exposure to COVID-19; G62.9 Polyneuropathy, unspecified; R06.09 Other forms of dyspnea; W01.0XXA Fall on same level from slipping, tripping and stumbling without subsequent striking against object, initial encounter; M19.90 Unspecified osteoarthritis, unspecified site; M81.0 Age-related osteoporosis without current pathological fracture; Z82.3 Family history of stroke; Z87.81 Personal history of (healed) traumatic fracture; Z88.1 Allergy status to other antibiotic agents; Z88.2 Allergy status to sulfonamides; Z88.8 Allergy status to other drugs, medicaments and biological substances; Y93.89 Activity, other specified; Y92.89 Other specified places as the place of occurrence of the external cause; Y99.8 Other external cause status
CPT/HCPCS: 36415; 36430; 70450; 71045; 72125; 73502; 76000; 80048; 80053; 82550; 84484; 85014; 85018; 85025; 85027; 86850; 86900; 86901; 86920; 87426; 93005; 93306; 96374; 96375; A4223; A4314; A4930; A6223; A6253; A6402; C1713; C1769; J0690; J1100; J1644; J2370; J2405; J2704; J3010; J7030; P9016; P9041; U0003; U0005; 97110-GP; 97530-GO; 97530-GP; 97535-GO; 99285-25; G0378